=== PATIENT | female | born 1930 | race Caucasian/White ===

== ENCOUNTER → 2017-01-23 | Outpatient (REF) | payer MEDICARE ==
[~2017-01-23] MED LIST: /ESOM40CA OR; /WARF25TA OR; ALPHAGAN OU; ASOPT OU; BISA10SU2 RE; BISA5TA OR; BISOPROLOL HCTZ PO; CALC500T49 OR; CARDIZEM SR PO; DETR4CAP OR; DILT120C3 OR; KEFL500C OR; KLOR10TA OR; LASI40TA OR; LYRICA PO; MULTIVIT PO; OYST500T OR; PERC5TAB8 OR; PREV15CA OR; ZEBE5TAB OR; [UNRECOGNIZED DRUG - OTHER] PO; [UNRECOGNIZED DRUG - OTHER] PO; azor PO; fish oil PO; magnesium PO; pradaxa PO; vitamin e PO; zocor PO
[2017-01-23 16:27] LABS: CALCIUM LEVEL 9.2 MG/DL (8.8-10.2)
== END ==
LOC: M LABDRAW1 13:42
PROVIDERS: ATTEND Internal Medicine Endocrinology, Diabetes & Metabolism
DX: M81.0 Age-related osteoporosis without current pathological fracture (principal)

== ENCOUNTER → 2017-09-17 | Outpatient (CLI) | payer MEDICARE | LOC: M RAD 10:27 | DX: N64.4 Mastodynia (principal) | CPT/HCPCS: 77066 ==

== ENCOUNTER → 2017-11-13 | Outpatient (CLI) | payer MEDICARE | LOC: M RAD 12:59 | DX: R22.43 Localized swelling, mass and lump, lower limb, bilateral (principal) | CPT/HCPCS: 93970 ==

== ENCOUNTER 2018-06-19 12:27 | Day surgery (SDC) | payer MEDICARE ==
[~2018-06-19] VITALS: Ht 157.5 cm; Wt 86.5 kg
[~2018-06-19 12:27] MED LIST changes: -/ESOM40CA OR; -/WARF25TA OR; +BISA10SU27 PR; +BISO5TAB5 PO; +BRIM1OPD OU; +CARD60TA3 PO; +CHEW500C2 PO; +COQ150CH PO; +COUM1TAB18 OR; +DETR4CAP PO; +DULC5TAB PO; +FENT12DI12 TOP; +FISH1000 PO; +LABE200T32 PO; +LASI40TA9 PO; +MAGN400C PO; +MIRA0.12 PO; +MULTCAP PO; +NEXI1CAP3 OR; +NEXI40CA PO; +OCUV1CAP4 PO; +POTA10TA17 PO; +TRAM1CAP15 PO; +VITA-157 PO; +XARE10TA PO; +ZOCO10TA PO
[2018-06-19] MEDS ORDERED: VANCOMYCIN 1000 MG/20 ML VIAL (J3370) As Ordered ONE (14:31)
[2018-06-19] MEDS ORDERED: LIDOCAINE 1% SDV INJ 30 ML VIAL As Ordered ONE (14:31)
[2018-06-19] MEDS ORDERED: NEOSPORIN TOP OINT 15GM As Ordered ONE (17:01)
[2018-06-19] MEDS ORDERED: ONDANSETRON 4MG/2ML VIAL (J2405) As Ordered ONE (17:30)
[2018-06-19] MEDS ORDERED: fentaNYL 100 MCG/2 ML INJECTION (J3010) As Ordered ONE (17:30)
[2018-06-19] MEDS ORDERED: PROPOFOL 200 MG/20 ML VIAL As Ordered ONE ×2 (17:30→18:02)
[2018-06-19] MEDS ORDERED: LIDOCAINE 2% INJ 100 MG/5 ML SDV (FOR ANES.) As Ordered ONE (17:30)
[2018-06-19] MEDS ORDERED: MIDAZOLAM INJ 2 MG/2 ML VIAL (J2250) As Ordered ONE (17:30)
[2018-06-19] MEDS ORDERED: LR 1,000 ML IV SCH (18:30)
[2018-06-19] MEDS ORDERED: fentaNYL 100 MCG/2 ML INJECTION (J3010) IV PRN (18:30)
--- NOTE | 2018-06-19 19:31 | RO ---
DATE OF PROCEDURE: 06/19/2018 PREPROCEDURE DIAGNOSIS: Pacemaker battery depletion. POSTPROCEDURE DIAGNOSIS: Pacemaker battery depletion. FINDINGS: Pacemaker battery depletion. PROCEDURE: Explantation of old [employer] dual-chamber pacemaker pulse generator with implantation of new [employer] dual-chamber pacemaker pulse generator and implantation of medium size TYRX antimicrobial envelope. SURGEON: Claudio Niño MD CONFERENCE PLANNER: None. ANESTHESIA: Lidocaine 1% local and monitored anesthetic care. SPECIMENS: Old [employer] dual-chamber pacemaker pulse generator. ESTIMATED BLOOD LOSS: Less than 2 mL. No blood products replaced. No drains. No complications. DESCRIPTION OF PROCEDURE: The patient was prepped and draped over the left pectoral region. 3M Ioban film was applied. Incision was made with a PEAK PlasmaBlade over the existing pacemaker scar. This was done using a PEAK PlasmaBlade. The PEAK PlasmaBlade was then used to dissect down to the level of the pacemaker pulse generator. Some fine scissors dissection was used to cut through the capsule overlying the pulse generator. The suture holding down the pacemaker pulse generator was then snipped. The pacemaker pulse generator was then removed from the pocket. The terminal pins were removed from the pacemaker pulse generator after reducing the set screws with the hex screwdriver. The atrial and ventricular leads were tested and found to be satisfactory. The existing terminal pins of the atrial and ventricular leads were plugged into their respective ports in the header of the new pacemaker pulse generator and secured by tightening the set screws with the hex screwdriver. I then took a medium size TYRX antimicrobial envelope and cut it into six pieces, which were placed into the floor of the pacemaker pocket. The new pacemaker pulse generator was then placed on top of that within the existing pacemaker pocket. The deep layer, including the anterior capsule, was closed using individual sutures consisting of #2-0 Vicryl. A few additional #3-0 Vicryl sutures were used to help approximate the more superficial layer. The skin was closed using cheryl. The patient tolerated the procedure well without any immediate complications. The existing pacemaker pulse generator that was explanted was a [employer], model 5826 with serial number [id number], originally implanted 10/28/2008. The new pacemaker pulse generator implanted was a [employer] Assurity MRI with model number [id number] with serial number [id number]. The existing chronic right atrial lead was a [employer], model 1782TC/52 with serial number [id number], originally implanted 10/28/2008. The patient was in atrial fibrillation. The measured atrial fibrillation amplitude waves were 0.5 millivolts with lead impedance of 309 ohms. The existing right ventricle lead was a [employer], model 1646T/58 with serial number [id number], originally implanted 10/28/2008. Testing in the operating room for the right ventricle lead through the PSA analyzer showed a capture threshold of 0.9 volts at 0.4 milliseconds with R wave amplitude of 6.0 millivolts and a lead impedance of 463 ohms.
[2018-06-19 19:52] VITALS: BP 113/56
== END 2018-06-19 19:52 | disposition home or self-care (01) ==
LOC: M SDC 12:27
PROVIDERS: ATTEND Internal Medicine Cardiovascular Disease
DX: T82.111A Breakdown (mechanical) of cardiac pulse generator (battery), initial encounter (principal); Z45.010 Encounter for checking and testing of cardiac pacemaker pulse generator [battery]; I48.0 Paroxysmal atrial fibrillation; I12.9 Hypertensive chronic kidney disease with stage 1 through stage 4 chronic kidney disease, or unspecified chronic kidney disease; I50.9 Heart failure, unspecified; E78.5 Hyperlipidemia, unspecified; J44.9 Chronic obstructive pulmonary disease, unspecified; N18.9 Chronic kidney disease, unspecified; Z79.899 Other long term (current) drug therapy
CPT/HCPCS: 33228; C1785; J0690; J2250; J2405; J3010

== ENCOUNTER 2018-09-03 18:04 | Inpatient (IN) | payer MEDICARE ==
[~2018-09-03] VITALS: Ht 157.5 cm; Wt 85.5 kg
[~2018-09-03 18:04] MED LIST changes: +BISO5TAB14 PO; -BISO5TAB5 PO
[2018-09-03] MEDS ORDERED: ELIQ2.5T PO (18:36)
[2018-09-03] MEDS ORDERED: PANT40TA3 PO (18:36)
[2018-09-03] MEDS ORDERED: TORS20TA2 PO (18:36)
[2018-09-03] MEDS ORDERED: CALC-333 PO (18:58)
[2018-09-03] MEDS ORDERED: CART120C PO (18:58)
[2018-09-03 19:05] LABS: BASO % 0.4 % (0.0-1.0); EOS # 0.2 10^3/uL (0.0-0.50); EOS % 2.7 % (0.0-3.0); HEMATOCRIT 31.1 % (36.0-47.0); HEMOGLOBIN 9.2 g/dl (12.0-15.5); LYMPH # 0.7 10^3/uL (1.5-4.5); LYMPH % 10.5 % (24.0-44.0); MEAN CORPUSCULAR HEMOGLOBIN 26.1 pg (27.0-33.0); MEAN CORPUSCULAR HGB CONC 29.6 g/dl (32.0-36.5); MEAN CORPUSCULAR VOLUME 88.1 fl (80.0-96.0); MONO # 0.8 10^3/uL (0.0-0.8); MONO % 11.1 % (0.0-5.0); NEUTROPHILS # 5.2 10^3/uL (1.8-7.7); NEUTROPHILS % 74.7 % (36.0-66.0); PLATELET COUNT, AUTOMATED 242 10^3/uL (150-450); RED BLOOD COUNT 3.53 10^6/uL (4.00-5.40); WHITE BLOOD COUNT 6.9 10^3/uL (4.0-10.0)
[2018-09-03] MEDS ORDERED: COMB0.2S OU (19:06)
[2018-09-03] MEDS ORDERED: MIRA0.5T PO (19:06)
[2018-09-03] MEDS ORDERED: VITA-157 PO (19:06)
[2018-09-03] MEDS ORDERED: TRAM50TA2 PO (19:06)
[2018-09-03] MEDS ORDERED: ACET-683 PO (19:06)
[2018-09-03 19:07] LABS: INR 1.25; PROTHROMBIN TIME 15.4 SECONDS (11.8-14.0)
[2018-09-03 19:26] LABS: ALBUMIN 3.5 GM/DL (3.2-5.2); BILIRUBIN,DIRECT 0.2 MG/DL (0.0-0.2); BILIRUBIN,TOTAL 0.7 MG/DL (0.2-1.0); CALCIUM LEVEL 8.9 MG/DL (8.8-10.2); CREATININE FOR GFR 1.12 MG/DL (0.55-1.30); GLOMERULAR FILTRATION RATE 49.1 (>32); POTASSIUM SERUM 3.7 MEQ/L (3.5-5.1); TOTAL PROTEIN 6.3 GM/DL (6.4-8.2)
--- NOTE | 2018-09-03 19:35 | ECGEPIP ---
[facility] - ED Test Date: 2018-09-03 Pat Name: JANY OLSON Department: Room: - Gender: Female Measuring Clerk: : [id number] Requested By: Nelly Thrasher Order Number: [id number] Reading MD: Nelly Thrasher Measurements Intervals [place] Rate: 75 P: NC: -1 QRS: 13 QRSD: 94 T: QT: 381 QTc: 426 Interpretive Statements ATRIAL FIBRILLATION ELECTRONIC VENTRICULAR PACEMAKER ST DEVIATION AND MODERATE T-WAVE ABNORMALITY, CONSIDER ISCHEMIA NO PRIOR Electronically Signed on 09-03-2018 19:34:54 EDT by Nelly Thrasher
[2018-09-03] MEDS ORDERED: FENTANYL REMOVAL DOCUMENTATION MISC XX SCH (21:15)
--- NOTE | 2018-09-03 21:25 | HPEPDOC ---
General Date of Admission 09.03.18 Date of Service: Sep 03, 2018 Chief Complaint The patient is a 88-year-old female admitted with a reason for visit of Abdominal Pain. History of Present Illness 88f with hx of afib on eliquis, CHF, ppm, htn, hld, compression fractures who presents with concern for an esophageal stricture. Pt reports she has been feeling well with no issues swallowing solids or liquids, no chest or abdominal pain, and no regurgitation. She went to her PMD for routine screening and was found to have a positive stool occult blood. She was trying to avoid a colonoscopy and had a barium swallow with small bowel follow through yesterday. She was called today and asked to come to the ED for evaluation due to concern of a distal stricture as narrow as 5mm A full ROS was performed and is negative except as documented above Home Medications Scheduled Apixaban (Eliquis) 2.5 Mg Tablet, 2.5 MG PO BID, (Reported) Brimonidine Tartrate/Timolol (Combigan 0.2%-0.5% Eye Drops) 5 Ml Drops, 1 DROP OU BID, (Reported) Calcium Carbonate/Vitamin D3 (Calcium 500+D Tablet Chew) 1 Each Tab.chew, 1 CHW PO QPM, (Reported) Diltiazem HCl (Cartia Xt) 120 Mg Cap.er.24h, 120 MG PO QPM, (Reported) Fentanyl (Fentanyl) 12 Mcg Patch.td72, 12 MCG TOP Q72H, (Reported) Labetalol HCl (Labetalol HCl) 200 Mg Tablet, 200 MG PO BID, (Reported) Lutein/Zeaxanthin (Ocuvite Lutein 25-5 mg Softgel) 1 Each Capsule, 1 CAP PO DAILY, (Reported) AT 1200 Magnesium Oxide (Magnesium) 400 Mg Capsule, 400 MG PO DAILY, (Reported) Pantoprazole Sodium (Pantoprazole Sodium) 40 Mg Tablet.dr, 40 MG PO DAILY, (Reported) Potassium Chloride (Potassium Chloride) 10 Meq Tab.er.prt, 10 MEQ PO BID, (Reported) Pramipexole Di-HCl (Mirapex) 0.5 Mg Tablet, 0.5 MG PO QHS, (Reported) Simvastatin (Zocor) 10 Mg Tablet, 10 MG PO QHS, (Reported) Torsemide (Torsemide) 20 Mg Tablet, 40 MG PO BID, (Reported) Vitamin E (Dl,Tocopheryl Acet) (Vitamin E) 400 Unit Capsule, 400 UNIT PO DAILY, (Reported) AT 1200 Scheduled PRN Acetaminophen (Acetaminophen) 500 Mg Tablet, 500 MG PO QID PRN for PAIN, (Reported) PATIENT STATES SHE TAKES ONE TAB WITH TRAMADOL DOSE Tramadol HCl (Tramadol HCl) 50 Mg Tablet, 50 MG PO QID PRN for PAIN, (Reported) Allergies Coded Allergies: meperidine (Verified Allergy, Intermediate, 06/16/18) strange feeling all over naproxen (Verified Allergy, Intermediate, itching, 06/16/18) Past Medical History Medical History as above Surgical History as above Social History * Smoker: Denies Alcohol: Denies Drugs: denies A-FIB/CHADSVASC A-FIB History Current/History of A-Fib/PAF?: Yes Current PO Anticoag Therapy: Yes Physical Examination General Exam: Positive: Alert, No Acute Distress Eye Exam: Positive: PERRLA, Conjunctiva & lids normal, EOMI; Negative: Sclera icteric ENT Exam: Positive: Atraumatic, Mucous membr. moist/pink, Pharynx Normal Neck Exam: Positive: Supple; Negative: JVD, thyromegaly Chest Exam: Positive: Clear to auscultation, Normal air movement Heart Exam: Positive: Rate Normal, Irregular Rhythm, Normal S1, Normal S2; Negative: Murmurs, Rubs Telemetry: Positive: Atrial fibrillation Abdomen Exam: Positive: Normal bowel sounds, Soft; Negative: Tenderness, Hepatospenomegaly Extremity Exam: Positive: Edema Vital Signs Vital Signs Date Time Temp Pulse Resp B/P (MAP) Pulse Ox O2 Delivery O2 Flow Rate FiO2 09/03/18 18:49 74 130/58 (82) 95 09/03/18 18:06 99.1 18 Room Air Laboratory Data Labs 24H Laboratory Tests 2 09/03/18 18:31: Prothrombin Time 15.4H, Prothromb Time International Ratio 1.25 09/03/18 18:34: Immature Granulocyte % (Auto) 0.6, White Blood Count 6.9, Red Blood Count 3.53L, Hemoglobin 9.2L, Hematocrit 31.1L, Mean Corpuscular Volume 88.1, Mean Corpuscular Hemoglobin 26.1L, Mean Corpuscular Hemoglobin Concent 29.6L, Red Cell Distribution Width 16.8H, Platelet Count 242, Neutrophils (%) (Auto) 74.7H, Lymphocytes (%) (Auto) 10.5L, Monocytes (%) (Auto) 11.1H, Eosinophils (%) (Auto) 2.7, Basophils (%) (Auto) 0.4, Neutrophils # (Auto) 5.2, Lymphocytes # (Auto) 0.7L, Monocytes # (Auto) 0.8, Eosinophils # (Auto) 0.2, Basophils # (Auto) 0.0, Nucleated Red Blood Cells % (auto) 0.0, Anion Gap 8, Glomerular Filtration Rate 49.1, Calcium Level 8.9, Aspartate Amino Transf (AST/SGOT) 10, Alanine Aminotransferase (ALT/SGPT) 11L, Alkaline Phosphatase 135H, Total Bilirubin 0.7, Direct Bilirubin 0.2, Total Protein 6.3L, Albumin 3.5, Albumin/Globulin Ratio 1.25, Lipase 61L CBC/BMP Laboratory Tests 09/03/18 18:34 Red Blood Count 3.53 L, Mean Corpuscular Volume 88.1, Mean Corpuscular Hemog lobin 26.1 L, Mean Corpuscular Hemoglobin Concent 29.6 L, Red Cell Distribution Width 16.8 H, Neutrophils (%) (Auto) 74.7 H, Lymphocytes (%) (Auto) 10.5 L, Monocytes (%) (Auto) 11.1 H, Eosinophils (%) (Auto) 2.7, Basophils (%) (Auto) 0.4, Neutrophils # (Auto) 5.2, Lymphocytes # (Auto) 0.7 L, Monocytes # (Auto) 0.8, Eosinophils # (Auto) 0.2, Basophils # (Auto) 0.0 Assessment/Plan 88f presented for evaluation of esophagus will keep npo at midnight and hold eliquis in anticipation of possible EGD in am AFib/htn continue cardizem and labetalol resume eliquis after egd or if unable to schedule egd for friday chf continue torsemide monitor daily weights Is/Os compression fx continue fentanyl patch Plan / VTE VTE Prophylaxis Ordered?: Yes ERIKA ROBISON MD Sep 03, 2018 21:25
[2018-09-03] MEDS: LABETALOL 200 MG TAB PO SCH (22:03)
[2018-09-03] MEDS: SIMVASTATIN 10 MG TAB PO SCH (22:04)
[2018-09-03] MEDS: TORSEMIDE 20 MG TAB PO SCH (23:44)
[2018-09-03] MEDS: traMADol 50 MG TAB PO PRN (23:45)
[2018-09-04 06:00] VITALS: BP 117/55
[2018-09-04 06:53] LABS: HEMATOCRIT 27.6 % (36.0-47.0); HEMOGLOBIN 8.2 g/dl (12.0-15.5); MEAN CORPUSCULAR HEMOGLOBIN 25.2 pg (27.0-33.0); MEAN CORPUSCULAR HGB CONC 29.7 g/dl (32.0-36.5); MEAN CORPUSCULAR VOLUME 84.7 fl (80.0-96.0); PLATELET COUNT, AUTOMATED 216 10^3/uL (150-450); RED BLOOD COUNT 3.26 10^6/uL (4.00-5.40); WHITE BLOOD COUNT 6.5 10^3/uL (4.0-10.0)
[2018-09-04 07:25] LABS: BLOOD UREA NITROGEN 21 MG/DL (7-18); CALCIUM LEVEL 8.2 MG/DL (8.8-10.2); CARBON DIOXIDE LEVEL 35 MEQ/L (21-32); CHLORIDE LEVEL 105 MEQ/L (98-107); CREATININE FOR GFR 0.94 MG/DL (0.55-1.30); GLOMERULAR FILTRATION RATE > 60.0 (>32); GLUCOSE, FASTING 105 MG/DL (70-100); POTASSIUM SERUM 2.9 MEQ/L (3.5-5.1); SODIUM LEVEL 145 MEQ/L (136-145)
[2018-09-04] MEDS ORDERED: KCL 40MEQ IN D5/0.45NS 1000ML 1,000 ML IV SCH (09:00)
[2018-09-04] MEDS: MAGNESIUM OXIDE 400 MG TAB (MAG-OX) PO SCH (09:56)
[2018-09-04] MEDS: TORSEMIDE 20 MG TAB PO SCH ×2 (09:56→20:48)
[2018-09-04] MEDS: LABETALOL 200 MG TAB PO SCH ×2 (09:56→20:49)
[2018-09-04] MEDS: PANTOPRAZOLE 40MG TAB (PROTONIX) PO SCH (09:56)
[2018-09-04] MEDS: fentaNYL 12 MCG/HR PATCH TOP SCH (09:59)
[2018-09-04 14:00] VITALS: BP 101/51
--- NOTE | 2018-09-04 15:45 | IPNPDOC ---
Text Note Date of Service The patient was seen on 09/04/18. NOTE This is an 88-year-old female who was admitted after being found to have a di stal esophageal stricture. This was seen on a barium swallow with small bowel follow-through study at an outlying facility. The patient had had this study in order to clarify the source of guaiac-positive stools and anemia. Physical exam Vital signs: Please see below HEENT: Neck is supple, no adenopathy or thyromegaly, patient does have some pallor, oral mucosa is moist. Cardiovascular: Regular rate and rhythm with a normal S1 and S2. Respiratory: Clear to auscultation, no active cough. Abdomen: Soft, moderate central obesity, nontender, bowel tones present. Extremities: Trace to 1+ pitting edema to the feet, pedal pulses are palpable. Neuro: No focal neuromotor or sensory deficit. ASSESSMENT/PLAN: 1. Esophageal stricture.The patient has a distal esophageal stricture down to 5 mm. Patient initially denies symptoms, but then recalls having difficulty with "feeling full.". She does relate diminished appetite. She's not had any nausea or regurgitation that she can recall. Plans are for the patient did undergo evaluation by GI inclusive of EGD with possible dilatation. Evaluation has had to be delayed due to the fact that the patient is on chronic anticoagulation with Eliquis. This has been held. Anticipate EGD on Friday. Appreciate assistance from the GI service. 2. Chronic systolic congestive heart failurethe patient is not currently having an acute exacerbation. She is on high-dose diuretic. Renal function has been stable. Serum potassium, however, has dropped 2.9. We will supplement this with oral potassium. He continued to try to avoid excessive fluid overload. 3. Chronic atrial fibrillationthe patient's Eliquis is being held pending EGD. She has been placed on bridging therapy with Lovenox. VS,Fishbone, I+O VS, Fishbone, I+O Laboratory Tests 09/03/18 18:34 Red Blood Count 3.53 L, Mean Corpuscular Volume 88.1, Mean Corpuscular Hemoglobin 26.1 L, Mean Corpuscular Hemoglobin Concent 29.6 L, Red Cell Distribution Width 16.8 H, Neutrophils (%) (Auto) 74.7 H, Lymphocytes (%) (Auto) 10.5 L, Monocytes (%) (Auto) 11.1 H, Eosinophils (%) (Auto) 2.7, Basophils (%) (Auto) 0.4, Neutrophils # (Auto) 5.2, Lymphocytes # (Auto) 0.7 L, Monocytes # (Auto) 0.8, Eosinophils # (Auto) 0.2, Basophils # (Auto) 0.0 09/04/18 06:28 Red Blood Count 3.26 L, Mean Corpuscular Volume 84.7, Mean Corpuscular He moglobin 25.2 L, Mean Corpuscular Hemoglobin Concent 29.7 L, Red Cell Distribution Width 16.5 H, Calcium Level 8.2 L Vital Signs Date Time Temp Pulse Resp B/P (MAP) Pulse Ox O2 Delivery O2 Flow Rate FiO2 09/04/18 14:00 99.0 69 18 101/51 (68) 97 09/03/18 18:06 Room Air I&O- Last 24 Hours up to 6 AM 09/04/18 06:00 Intake Total 360 ml Output Total 1200 ml Balance -840 ml ALEXANDRA QUIGLEY MD Sep 04, 2018 15:45
[2018-09-04] MEDS ORDERED: POTASSIUM CHLORIDE 10% LIQ 20 MEQ/15 ML UDC PO ONE (16:00)
[2018-09-04] MEDS: ENOXAPARIN 80 MG/0.8 ML SYRINGE (J1650) SC SCH (17:18)
[2018-09-04] MEDS: SIMVASTATIN 10 MG TAB PO SCH (20:49)
[2018-09-04] MEDS ORDERED: ENTER DRUG NAME HERE (PATIENT'S OWN MED) PO SCH (21:00)
[2018-09-04 22:00] VITALS: BP 140/78
[2018-09-04] MEDS: SENNA 8.6 MG TAB (SENOKOT) PO PRN (22:30)
[2018-09-04] MEDS ORDERED: PILL CUTTER 1 EACH XX PRN (22:30)
[2018-09-04] MEDS: PRAMIPEXOLE 1 MG TAB PO SCH (22:30)
[2018-09-04] MEDS: traMADol 50 MG TAB PO PRN (22:31)
[2018-09-05] MEDS: ENOXAPARIN 80 MG/0.8 ML SYRINGE (J1650) SC SCH ×2 (05:30→17:51)
[2018-09-05] MEDS: traMADol 50 MG TAB PO PRN ×3 (05:31→20:48)
[2018-09-05 06:00] VITALS: BP 130/58
[2018-09-05 07:00] LABS: CALCIUM LEVEL 8.9 MG/DL (8.8-10.2); CREATININE FOR GFR 0.96 MG/DL (0.55-1.30); GLOMERULAR FILTRATION RATE 58.7 (>32)
[2018-09-05 08:00] VITALS: BP 133/82
[2018-09-05] MEDS ORDERED: POTASSIUM CHLORIDE 10% LIQ 20 MEQ/15 ML UDC PO SCH (09:00)
[2018-09-05] MEDS: TORSEMIDE 20 MG TAB PO SCH ×2 (09:30→20:47)
[2018-09-05] MEDS: PANTOPRAZOLE 40MG TAB (PROTONIX) PO SCH (09:31)
[2018-09-05] MEDS: LABETALOL 200 MG TAB PO SCH ×2 (09:31→20:47)
[2018-09-05] MEDS: MAGNESIUM OXIDE 400 MG TAB (MAG-OX) PO SCH (09:32)
[2018-09-05 13:25] VITALS: BP 122/73
--- NOTE | 2018-09-05 13:33 | CR ---
DATE OF CONSULTATION: 09/05/2018 REQUESTING PHYSICIAN: Hospitalist service. REASON FOR CONSULTATION: Esophageal stricture. HISTORY OF PRESENT ILLNESS: Ms. Osei is an 88-year-old female with atrial fibrillation on Eliquis. She was noted to have some heme positive stool and history of anemia. During her evaluations for her anemia she was found to have heme positive stools and subsequently was ordered to have an upper GI small bowel follow through performed. The upper GI found a narrowing in her distal esophagus up to 5 mm and the patient was asked to come to the emergency room for further evaluation. The patient denies any significant abdominal pain, nausea, vomiting. She denies any significant dysphagia. She does eat soft foods in general and fills up fairly quickly; however, denies any significant upper GI symptoms. She has she has never choked on food or has not had any significant vomiting or regurgitation symptoms. She denies any weight loss, fevers, chills, abdominal pain, nausea, vomiting and actually feels fairly comfortable. PAST MEDICAL HISTORY: Atrial fibrillation. Congestive heart failure. Hyperlipidemia. Anemia. MEDICATIONS AT HOME: - Eliquis - diltiazem - fentanyl patch - labetalol - Mag-Ox - pantoprazole - KCL - simvastatin - torsemide ALLERGIES: Are to: 1. DEMEROL. 2. NAPROSYN. FAMILY HISTORY: Noncontributory. REVIEW OF SYSTEMS: GENERAL: Negative for weight loss, night sweats, fevers or chills. PULMONARY: Negative for orthopnea, paroxysmal nocturnal dyspnea (PND), hemoptysis. CARDIAC: Negative for chest pain or palpitations. GASTROINTESTINAL (GI): As per HPI. GENITOURINARY (): Negative for hematuria, dysuria. MUSCULOSKELETAL: Positive for back pain related to her compression fractures. PHYSICAL EXAMINATION: Temperature 98.2, pulse 78, respiratory rate 16, blood pressure 132/82. GENERAL: She is awake, alert and oriented times three in no acute distress, comfortably in bed. HEAD, EYES, EARS, NOSE AND THROAT: Grossly without abnormality. Negative for scleral icterus. NECK: Supple. No lymphadenopathy, thyromegaly. CHEST: Heart is irregularly irregular, S1-S2, no murmurs or gallops. ABDOMEN: Obese, soft, nontender. Good bowel sounds. No masses felt. EXTREMITIES: Negative for edema. RECTAL EXAMINATION: Deferred as per patient. LABORATORY FINDINGS: Hemoglobin 9.2/8.2, MCV is 84.7, RDW 16.5, WBC 6.5, potassium 3.0, chloride 104, BUN 15, creatinine 0.96. IMAGING STUDIES: Includes upper GI series small bowel follow-through done at [facility], dated 09/02/2018, impressions include: 1. Narrowing of the distal esophagus measuring approximately 5 mm in transverse diameter at its narrowest point. 2. Tertiary contractions on the esophagus are noted. 3. Gastroesophageal reflux is identified. 4. Gastric fold thickening suggesting underlying gastritis. 5. The small bowel follow-through portion is unremarkable. IMPRESSION: 1. Abnormal upper GI suggesting esophageal stricture. 2. Anemia. 3. Heme positive stool. RECOMMENDATION: 1. Hold Eliquis times two days after which time upper endoscopy with possible dilation if necessary will be performed. Further recommendations will depend on findings.
[2018-09-05] MEDS: ACETAMINOPHEN 500 MG TAB PO PRN (17:52)
--- NOTE | 2018-09-05 19:35 | IPNPDOC ---
Text Note Date of Service The patient was seen on 09/05/18. NOTE The patient is not having any pain, discomfort or difficulty eating. Patient was admitted with concern for possible GI bleed and distal esophageal stricture. Eliquis is being held and we are hopeful of endoscopy evaluation on Friday. The patient is reporting a small amount of blood with her stools today. Physical exam Vital signs: Please see below HEENT: Neck is supple, no adenopathy or thyromegaly, patient does have some pallor, oral mucosa is moist. Cardiovascular: Regular rate and rhythm with a normal S1 and S2. Respiratory: Clear to auscultation, no active cough. Abdomen: Soft, moderate central obesity, nontender, bowel tones present. Extremities: Trace to 1+ pitting edema to the feet, pedal pulses are palpable. Neuro: No focal neuromotor or sensory deficit. ASSESSMENT/PLAN: 1. Esophageal stricture.The patient has a distal esophageal stricture down to 5 mm. Patient initially denies symptoms, but then recalls having difficulty with "feeling full.". She does relate diminished appetite. She's not had any nausea or regurgitation that she can recall. Plans are for the patient did undergo evaluation by GI inclusive of EGD with possible dilatation. Evaluation has had to be delayed due to the fact that the patient is on chronic anticoagulation with Eliquis. This has been held. Anticipate EGD on Friday. Appreciate assistance from the GI service. 2. Chronic systolic congestive heart failurethe patient is not currently having an acute exacerbation. She is on high-dose diuretic. Renal function has been stable. Serum potassium, however, has dropped to 3.0. We will supplement this with oral potassium. We continued to try to avoid excessive fluid overload. 3. Chronic atrial fibrillationthe patient's Eliquis is being held pending EGD. She has been placed on bridging therapy with Lovenox. 4. Anemiathere was also concern for blood loss anemia with guaiac positive stool. We note that hemoglobin has dropped from 9.2-8.2. We will recheck and tra nsfuse as needed. VS,Fishbone, I+O VS, Fishbone, I+O Laboratory Tests 09/05/18 06:08 Calcium Level 8.9 Vital Signs Date Time Temp Pulse Resp B/P (MAP) Pulse Ox O2 Delivery O2 Flow Rate FiO2 09/05/18 13:25 97.4 70 19 122/73 (89) 92 09/03/18 18:06 Room Air I&O- Last 24 Hours up to 6 AM 09/05/18 06:00 Intake Total 1070 ml Output Total 1425 ml Balance -355 ml ALEXANDRA QUIGLEY MD Sep 05, 2018 17:13
[2018-09-05 20:02] LABS: IRON (FE) 32 UG/DL (50-170); TOTAL IRON BINDING CAPACITY 399 UG/DL (250-450)
[2018-09-05] MEDS: SIMVASTATIN 10 MG TAB PO SCH (20:47)
[2018-09-05] MEDS: PRAMIPEXOLE 1 MG TAB PO SCH (20:54)
[2018-09-05 22:00] VITALS: BP 110/66
[2018-09-06] MEDS: traMADol 50 MG TAB PO PRN ×2 (05:31→17:10)
[2018-09-06] MEDS: ENOXAPARIN 80 MG/0.8 ML SYRINGE (J1650) SC SCH ×2 (05:31→17:11)
[2018-09-06 06:00] VITALS: BP 114/74
[2018-09-06 07:20] LABS: HEMOGLOBIN 8.3 g/dl (12.0-15.5); MEAN CORPUSCULAR HEMOGLOBIN 24.9 pg (27.0-33.0); MEAN CORPUSCULAR HGB CONC 29.6 g/dl (32.0-36.5); MEAN CORPUSCULAR VOLUME 83.8 fl (80.0-96.0); PLATELET COUNT, AUTOMATED 221 10^3/uL (150-450); RED BLOOD COUNT 3.34 10^6/uL (4.00-5.40); WHITE BLOOD COUNT 8.4 10^3/uL (4.0-10.0)
[2018-09-06 07:46] LABS: BLOOD UREA NITROGEN 12 MG/DL (7-18); CALCIUM LEVEL 8.6 MG/DL (8.8-10.2); CARBON DIOXIDE LEVEL 35 MEQ/L (21-32); CHLORIDE LEVEL 101 MEQ/L (98-107); CREATININE FOR GFR 0.94 MG/DL (0.55-1.30); GLOMERULAR FILTRATION RATE > 60.0 (>32); GLUCOSE, FASTING 115 MG/DL (70-100); POTASSIUM SERUM 2.9 MEQ/L (3.5-5.1); SODIUM LEVEL 141 MEQ/L (136-145)
[2018-09-06] MEDS: TORSEMIDE 20 MG TAB PO SCH ×2 (09:00→21:01)
[2018-09-06] MEDS: MAGNESIUM OXIDE 400 MG TAB (MAG-OX) PO SCH (09:00)
[2018-09-06] MEDS: LABETALOL 200 MG TAB PO SCH ×2 (09:00→21:01)
[2018-09-06] MEDS: PANTOPRAZOLE 40MG TAB (PROTONIX) PO SCH (09:00)
[2018-09-06] MEDS: POTASSIUM CHLORIDE 10% LIQ 20 MEQ/15 ML UDC PO SCH (09:00)
[2018-09-06 14:00] VITALS: BP 99/55
--- NOTE | 2018-09-06 17:23 | IPNPDOC ---
Text Note Date of Service The patient was seen on 09/06/18. NOTE The patient is not having any pain, discomfort or difficulty eating. Patient was admitted with concern for possible GI bleed and distal esophageal stricture. Eliquis is being held and we are expecting of endoscopy evaluation on Friday. The patient reported a small amount of blood with her stools yesterday. Physical exam Vital signs: Please see below HEENT: Neck is supple, no adenopathy or thyromegaly, patient does have some pallor, oral mucosa is moist. Cardiovascular: Regular rate and rhythm with a normal S1 and S2. Respiratory: Clear to auscultation, no active cough. Abdomen: Soft, moderate central obesity, nontender, bowel tones present. Extremities: Trace to 1+ pitting edema to the feet, pedal pulses are palpable. Neuro: No focal neuromotor or sensory deficit. ASSESSMENT/PLAN: 1. Esophageal stricture.The patient has a distal esophageal stricture down to 5 mm reported from barium swallow study. Patient initially denies symptoms, but then recalls having difficulty with "feeling full.". She does relate diminished appetite. She's not had any nausea or regurgitation that she can recall. Plans are for the patient did undergo evaluation by GI inclusive of EGD with possible dilatation. Evaluation has had to be delayed due to the fact that the patient is on chronic anticoagulation with Eliquis. This has been held. Anticipate EGD tomorrow. Appreciate assistance from the GI service. 2. Chronic systolic congestive heart failurethe patient is not currently having an acute exacerbation. She is on high-dose diuretic. Renal function has been stable. Serum potassium, however, has dropped to 3.0. We will supplement this with oral potassium. We continued to try to avoid excessive fluid overload. 3. Chronic atrial fibrillationthe patient's Eliquis is being held pending EGD. She has been placed on bridging therapy with Lovenox. This will be held for endoscopy tomorrow. 4. Anemiathere was also concern for blood loss anemia with guaiac positive st ool. We note that hemoglobin has dropped from 9.2-8.2; hemoglobin is 8.3 today. We will recheck and transfuse as needed. VS,Fishbone, I+O VS, Fishbone, I+O Laboratory Tests 09/06/18 06:52 Red Blood Count 3.34 L, Mean Corpuscular Volume 83.8, Mean Corpuscular Hemoglobin 24.9 L, Mean Corpuscular Hemoglobin Concent 29.6 L, Red Cell Distribution Width 16.4 H, Calcium Level 8.6 L Vital Signs Date Time Temp Pulse Resp B/P (MAP) Pulse Ox O2 Delivery O2 Flow Rate FiO2 09/06/18 17:10 16 09/06/18 09:00 74 114/74 09/06/18 06:00 97.8 95 09/03/18 18:06 Room Air I&O- Last 24 Hours up to 6 AM 09/06/18 05:59 Intake Total 1561 ml Output Total 450 ml Balance 1111 ml ALEXANDRA QUIGLEY MD Sep 06, 2018 17:23
[2018-09-06] MEDS: SIMVASTATIN 10 MG TAB PO SCH (21:01)
[2018-09-06] MEDS: PRAMIPEXOLE 1 MG TAB PO SCH (21:01)
[2018-09-06 21:05] VITALS: BP 118/66
[2018-09-07 05:41] VITALS: BP 115/58
[2018-09-07 06:29] LABS: MEAN CORPUSCULAR HEMOGLOBIN 25.7 pg (27.0-33.0); MEAN CORPUSCULAR VOLUME 85.7 fl (80.0-96.0); PLATELET COUNT, AUTOMATED 231 10^3/uL (150-450); WHITE BLOOD COUNT 8.4 10^3/uL (4.0-10.0)
[2018-09-07] MEDS: POTASSIUM CHLORIDE 10% LIQ 20 MEQ/15 ML UDC PO SCH (09:26)
[2018-09-07] MEDS: fentaNYL 12 MCG/HR PATCH TOP SCH (09:26)
[2018-09-07] MEDS: MAGNESIUM OXIDE 400 MG TAB (MAG-OX) PO SCH (09:27)
[2018-09-07] MEDS: TORSEMIDE 20 MG TAB PO SCH ×2 (09:27→20:41)
[2018-09-07] MEDS: PANTOPRAZOLE 40MG TAB (PROTONIX) PO SCH (09:29)
[2018-09-07] MEDS: LABETALOL 200 MG TAB PO SCH ×2 (09:30→20:40)
[2018-09-07] MEDS ORDERED: ENOXAPARIN 100MG/1ML SYRINGE (J1650) SC SCH (10:15)
[2018-09-07 11:11] LABS: VITAMIN B12 LEVEL 598 PG/ML (247-911)
[2018-09-07 11:12] LABS: FOLATE > 24.0 NG/ML (>5.4)
[2018-09-07 11:45] VITALS: BP 104/58
--- NOTE | 2018-09-07 13:42 | REP ---
CHEST X-RAY: Single view. HISTORY: Shortness of breath. COMPARISON STUDY: December 20, 2010. FINDINGS: A bipolar pacemaker is again seen in the right heart via the left side. Oxygen delivery tubing is seen. Left hemidiaphragm is slightly elevated. There is no evidence of infiltrate or pleural effusion. There is mild linear plate-like atelectasis in the left base. IMPRESSION: Mildly prominent heart with pacemaker. Plate-like atelectasis left base. No acute infiltrate. Electronically Signed by Arnie Pitts MD 09/07/2018 02:30 P
[2018-09-07 13:58] LABS: APPEARANCE, URINE CLEAR (CLEAR); BACTERIA, URINE AUTO NEGATIVE (NEGATIVE); BILIRUBIN, URINE AUTO NEGATIVE (NEGATIVE); BLOOD, URINE BLOOD 1+ (NEGATIVE); COLOR, URINE YELLOW (YELLOW); GLUCOSE, URINE (UA) AUTO NEGATIVE (NEGATIVE); KETONE, URINE AUTO NEGATIVE (NEGATIVE); LEUKOCYTE ESTERASE, URINE AUTO 1+ (NEGATIVE); MUCUS, URINE SMALL (NEGATIVE); NITRITE, URINE AUTO NEGATIVE (NEGATIVE); PROTEIN, URINE AUTO NEGATIVE (NEGATIVE); RBC, URINE AUTO 18 /HPF (0-3); SPECIFIC GRAVITY URINE AUTO 1.006 (1.002-1.035); SQUAMOUS EPITHELIAL CELL UR AU 0 /HPF (0-6); UROBILINOGEN, URINE AUTO 0.2 mg/dL (0.0-2.0); WBC, URINE AUTO 8 /HPF (0-3)
[2018-09-07 14:47] VITALS: BP 110/52
--- NOTE | 2018-09-07 16:40 | REP ---
Noncontrast brain CT: History: Fatigue and confusion. No comparison brain imaging. CT findings: Digital preliminary cnc manager radiograph is unremarkable. Bone window settings show no bony calvarial lesion. Visualized paranasal sinuses are clear. There is fairly heavy vascular calcification in the distal internal carotid arteries bilaterally. On soft tissue window settings there is diffuse moderate atrophy. There are old lacunar infarcts in the basal ganglia bilaterally. Extensive small vessel atherosclerotic changes are seen in the periventricular white matter. There is no evidence of intracranial hemorrhage. No acute cortical infarction is seen. No extra-axial fluid collection, mass, or midline shift is seen. Impression: Diffuse moderate atrophy, vascular calcification, advanced the small vessel changes. Bilateral basal ganglia lacunar infarcts. No acute intracranial abnormality. Electronically Signed by Arnie Pitts MD 09/08/2018 07:44 A
[2018-09-07] MEDS: ENOXAPARIN 100MG/1ML SYRINGE (J1650) SC SCH (18:09)
[2018-09-07 19:14] VITALS: BP 112/52
[2018-09-07] MEDS ORDERED: cefTRIAXone SOD 1 GM in D5W MINI-BAG PLUS 50 ML IV ONE (19:15)
--- NOTE | 2018-09-07 19:42 | IPNPDOC ---
Text Note Date of Service The patient was seen on 09/07/18. NOTE had an episode today of acute onset of fatigue and confusion. She also had decreased responsiveness. Daughter noted prolonged episodes of sleepiness. Patient had been scheduled for EGD to evaluate for GI bleed and possible distal esophageal stricture. Procedure had to be canceled. Physical exam Vital signs: Please see below HEENT: Neck is supple, no adenopathy or thyromegaly, patient does have some pallor, oral mucosa is moist. Cardiovascular: Regular rate and rhythm with a normal S1 and S2. Respiratory: Clear to auscultation, no active cough. Abdomen: Soft, moderate central obesity, nontender, bowel tones present. Extremities: Trace to 1+ pitting edema to the feet, pedal pulses are palpable, patient complained of pain and weakness to her left shoulder and arm Neuro: No focal neuromotor or sensory deficit, patient was alert and conversant but fatigued Laboratory data and radiologic review: CT scan of the head: On soft tissue window settings there is diffuse moderate atrophy. There are old lacunar infarcts in the basal ganglia bilaterally. Extensive small vessel atherosclerotic changes are seen in the periventricular white matter. There is no evidence of intracranial hemorrhage. No acute cortical infarction is seen. No extra-axial fluid collection, mass, or midline shift is seen. Impression: Diffuse moderate atrophy, vascular calcification, advanced the small vessel changes. Bilateral basal ganglia lacunar infarcts. No acute intracranial abnormality. Chest x-ray was unremarkable. Troponin was negative. Other laboratory studies were within normal limits. ASSESSMENT/PLAN: 1. Esophageal stricture.The patient has a distal esophageal stricture down to 5 mm reported from barium swallow study. Patient initially denies symptoms, but then recalls having difficulty with "feeling full.". She does relate diminished appetite. She's not had any nausea or regurgitation that she can recall. Plans had been for the patient did undergo evaluation by GI inclusive of EGD with possible dilatation. Evaluation has had to be delayed due to the fact that the patient is on chronic anticoagulation with Eliquis. This had been held with bridging therapy in place. Anticipate repeat attempt at EGD tomorrow. Appreciate assistance from the GI service. 2. Chronic systolic congestive heart failurethe patient is not currently having an acute exacerbation. She is on high-dose diuretic. Renal function has been stable. Serum potassium, however, has dropped to 3.0. We will supplement this with oral potassium. We continued to try to avoid excessive fluid overload. 3. Chronic atrial fibrillationthe patient's Eliquis is being held pending EGD. She has been placed on bridging therapy with Lovenox. This will be held for endoscopy tomorrow. 4. Anemiathere was also concern for blood loss anemia with guaiac positive stool. Some blood had been seen with a bowel movement today. We note that hemoglobin has dropped from 9.2-8.2; hemoglobin is 9.0 today. We will recheck and transfuse as needed. 5. Mental status change--the etiology of this event was unclear. Again, CT scan of the head was unremarkable, chest x-ray was unremarkable, troponin was negative, laboratory studies were fairly well within normal limits. Urinalysis was positive for white cells and trace leukocyte esterase but negative for bacteria. Patient has been placed on empiric antibiotic while awaiting urine culture result. Symptoms were substantially improved by late afternoon. VS,Fishbone, I+O VS, Fishbone, I+O Laboratory Tests 09/07/18 06:13 Red Blood Count 3.50 L, Mean Corpuscular Volume 85.7, Mean Corpuscular Hemoglobin 25.7 L, Mean Corpuscular Hemoglobin Concent 30.0 L, Red Cell Di stribution Width 16.3 H Vital Signs Date Time Temp Pulse Resp B/P (MAP) Pulse Ox O2 Delivery O2 Flow Rate FiO2 09/07/18 19:14 112/52 (72) 09/07/18 14:47 94.7 74 16 97 09/03/18 18:06 Room Air I&O- Last 24 Hours up to 6 AM 09/07/18 06:00 Intake Total 1500 ml Output Total 400 ml Balance 1100 ml ALEXANDRA QUIGLEY MD Sep 07, 2018 19:42
[2018-09-07] MEDS: SIMVASTATIN 10 MG TAB PO SCH (20:40)
[2018-09-07] MEDS: PRAMIPEXOLE 1 MG TAB PO SCH (20:41)
[2018-09-07 21:31] VITALS: BP 108/68
[2018-09-08] MEDS: traMADol 50 MG TAB PO PRN ×2 (01:56→12:11)
[2018-09-08 06:00] VITALS: BP 109/56
[2018-09-08] MEDS: ACETAMINOPHEN 500 MG TAB PO PRN ×2 (06:03→20:42)
[2018-09-08] MEDS: ENOXAPARIN 100MG/1ML SYRINGE (J1650) SC SCH ×2 (06:03→17:58)
[2018-09-08 08:12] LABS: BASO % 0.3 % (0.0-1.0); EOS # 0.1 10^3/uL (0.0-0.50); EOS % 1.2 % (0.0-3.0); HEMATOCRIT 27.5 % (36.0-47.0); HEMOGLOBIN 8.3 g/dl (12.0-15.5); LYMPH # 0.8 10^3/uL (1.5-4.5); LYMPH % 8.5 % (24.0-44.0); MEAN CORPUSCULAR HEMOGLOBIN 24.8 pg (27.0-33.0); MEAN CORPUSCULAR HGB CONC 30.2 g/dl (32.0-36.5); MEAN CORPUSCULAR VOLUME 82.1 fl (80.0-96.0); MONO # 1.1 10^3/uL (0.0-0.8); MONO % 12.3 % (0.0-5.0); NEUTROPHILS # 7.2 10^3/uL (1.8-7.7); NEUTROPHILS % 77.3 % (36.0-66.0); PLATELET COUNT, AUTOMATED 234 10^3/uL (150-450); RED BLOOD COUNT 3.35 10^6/uL (4.00-5.40); WHITE BLOOD COUNT 9.3 10^3/uL (4.0-10.0)
[2018-09-08 08:50] LABS: CALCIUM LEVEL 8.3 MG/DL (8.8-10.2); CREATININE FOR GFR 0.98 MG/DL (0.55-1.30); GLOMERULAR FILTRATION RATE 57.3 (>32); MAGNESIUM LEVEL 2.3 MG/DL (1.8-2.4); POTASSIUM SERUM 3.6 MEQ/L (3.5-5.1)
[2018-09-08] MEDS: LABETALOL 200 MG TAB PO SCH ×2 (09:00→20:37)
[2018-09-08] MEDS: PANTOPRAZOLE 40MG TAB (PROTONIX) PO SCH (09:40)
[2018-09-08] MEDS: POTASSIUM CHLORIDE 10% LIQ 20 MEQ/15 ML UDC PO SCH (09:41)
[2018-09-08] MEDS: MAGNESIUM OXIDE 400 MG TAB (MAG-OX) PO SCH (09:41)
[2018-09-08 13:50] VITALS: BP 108/60
[2018-09-08] MEDS ORDERED: propofoL 200 MG/20 ML VIAL As Ordered ONE ×2 (14:25→14:31)
[2018-09-08] MEDS ORDERED: LIDOCAINE 2% INJ 100 MG/5 ML SDV (FOR ANES.) As Ordered ONE (14:26)
[2018-09-08] MEDS ORDERED: PHENYLephrine HCL 500 MCG/5 ML (100MCG/ML) SYRINGE (J2370) As Ordered ONE (14:48)
--- NOTE | 2018-09-08 15:03 | ROOR ---
Patient Name: Rosario Osei Procedure Date: 09/08/2018 2:26 PM Date of : 1930 Age: 88 Room: [facility] Gender: Female Note Status: Finalized Procedure: Upper GI endoscopy Indications: Abnormal UGI series Providers: Claudio DELAROSA MD Referring MD: MARCIA COOLEY MD, 2. Inpatient 2. Inpatient Requesting Provider: Medicines: Monitored Anesthesia Care Complications: No immediate complications. Procedure: Pre-Anesthesia Assessment: - The heart rate, respiratory rate, oxygen saturations, blood pressure, adequacy of pulmonary ventilation, and response to care were monitored throughout the procedure. The Endoscope was introduced through the mouth, and advanced to the second part of duodenum. The upper GI endoscopy was accomplished without difficulty. The patient tolerated the procedure well. Findings: A hypertonic lower esophageal sphincter was found. Non-severe esophagitis with a small nodularity was found at the gastroesophageal junction. Biopsies were taken with a cold forceps for histology. Scattered mild inflammation characterized by erythema and granularity was found in the gastric antrum. Biopsies were taken with a cold forceps for histology. The exam of the stomach was otherwise normal. The examined duodenum was normal. A TTS dilator was passed through the scope. Dilation with a 12-13.5-15 mm balloon dilator was performed to 15 mm in the lower third of the esophagus. Impression: Esophagus: - There is no significant fixed esophageal stricture. - There is esophageal dysmotility and a spastic appearing lower esophageal sphincter. This is easily passable with gentle pressure with the scope. - Dilation of LES was performed in the lower third of the esophagus. - Non-severe distal esophagitis with a small nodularity was seen at the GE junction. Biopsied. 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 Biopsied. Duodenum: - Normal examined duodenum. Recommendation: - Observe patient's clinical course. - Pt is asymptomatic: I anticipate no further need for intervention for the esophageal dysmotility/spasm. - Follow up with me in my office. (to discuss need for colonoscopy for evaluation of anemia). - My office will call you to set up for office visit. Claudio Delarosa MD Claudio DELAROSA MD 09/08/2018 3:03:18 PM Electronically signed by Claudio DELAROSA MD Number of Addenda: 0 Note Initiated On: 09/08/2018 2:26 PM Estimated Blood Loss: Estimated blood loss: none.
--- NOTE | 2018-09-08 16:35 | IPNPDOC ---
Text Note Date of Service The patient was seen on 09/08/18. NOTE Subjective: Patient was seen and examined at the bedside. Patient reports that her appetite is poor. She reports that she hasn't taken anything because of her difficulty swallowing. Denies chest pain, shortness of breath or palpitations. Has not experience any vomiting. Denies diarrhea, constipation, or urinary discomfort. Objective: Vitals (See below) General: Lying in bed, no acute distress, comfortable, AAOx3 HEENT: NC, AT CVS: +S1S2 Lungs: Fair air entry b/l, -w/r/r Abdomen: Soft, ND, NT Extremities: - Edema, - Calf tenderness Assessment and plan: Dysphagia - likely 2/2 Esophageal stricture - - Patient received stool study as an outpatient had indicated positive guaiac, she had refused colonoscopy and had a barium swallow evaluation that indicated she had stricture - s/p EGD with Dr. Delarosa 09/08; indicated esophageal dysmotility and spastic- appearing lower esophageal sphincter dilation of lower esophageal sphincter is in the lower third of the esophagus, biopsies were taken - GI on consult - Will start soft diet and advanced as tolerated Chronic atrial fibrillation - c/w rate control with Diltiazem - c/w anticoagulation with Lovenox; Eliquis on hold - will resume tomorrow (re; EGD preparation) Chronic systolic congestive heart failure - No evidence of exacerbation - c/w Diuretics Anemia - Remains stable - Hg appears to be stable s/p Hypokalemia Weakness / Reported lethargy - Hemodynamically stable / Afebrile - CT head 09/07: Diffuse moderate atrophy, vascular calcification, advanced the small vessel changes. Bilateral basal ganglia lacunar infarcts. No acute intracranial abnormality. - UA without any signs of infection - s/p Ceftriaxone x 1 dose - Will continue to monitor as diet changes DVT prophylaxis - c/w Lovenox therapeutic VS,Fishbone, I+O VS, Fishbone, I+O Laboratory Tests 09/08/18 07:55 Red Blood Count 3.35 L, Mean Corpuscular Volume 82.1, Mean Corpuscular Hemoglobin 24.8 L, Mean Corpuscular Hemoglobin Concent 30.2 L, Red Cell Distribution Width 16.5 H, Neutrophils (%) (Auto) 77.3 H, Lymphocytes (%) (Auto) 8.5 L, Monocytes (%) (Auto) 12.3 H, Eosinophils (%) (Auto) 1.2, Basophils (%) (Auto) 0.3, Neutrophils # (Auto) 7.2, Lymphocytes # (Auto) 0.8 L, Monocytes # (Auto) 1.1 H, Eosinophils # (Auto) 0.1, Basophils # (Auto) 0.0, Calcium Level 8.3 L Vital Signs Date Time Temp Pulse Resp B/P (MAP) Pulse Ox O2 Delivery O2 Flow Rate FiO2 09/08/18 15:15 71 18 126/67 (86) 94 09/08/18 13:50 98.5 09/03/18 18:06 Room Air I&O- Last 24 Hours up to 6 AM 09/08/18 06:00 Intake Total 600 ml Output Total 2250 ml Balance -1650 ml ALEJO GRACIA MD Sep 08, 2018 16:35
[2018-09-08] MEDS: SIMVASTATIN 10 MG TAB PO SCH (20:36)
[2018-09-08] MEDS: PRAMIPEXOLE 1 MG TAB PO SCH (20:36)
[2018-09-08 22:00] VITALS: BP 132/79
[2018-09-09] MEDS: ENOXAPARIN 100MG/1ML SYRINGE (J1650) SC SCH (05:13)
[2018-09-09] MEDS: traMADol 50 MG TAB PO PRN ×3 (05:14→22:09)
[2018-09-09 06:00] VITALS: BP 125/73
[2018-09-09 07:02] LABS: BASO % 0.4 % (0.0-1.0); EOS # 0.2 10^3/uL (0.0-0.50); EOS % 3.1 % (0.0-3.0); HEMATOCRIT 28.2 % (36.0-47.0); HEMOGLOBIN 8.2 g/dl (12.0-15.5); LYMPH % 13.5 % (24.0-44.0); MEAN CORPUSCULAR HEMOGLOBIN 25.2 pg (27.0-33.0); MEAN CORPUSCULAR HGB CONC 29.1 g/dl (32.0-36.5); MEAN CORPUSCULAR VOLUME 86.5 fl (80.0-96.0); MONO # 0.8 10^3/uL (0.0-0.8); MONO % 11.4 % (0.0-5.0); NEUTROPHILS % 71.2 % (36.0-66.0); PLATELET COUNT, AUTOMATED 242 10^3/uL (150-450); RED BLOOD COUNT 3.26 10^6/uL (4.00-5.40)
[2018-09-09 07:25] LABS: CALCIUM LEVEL 8.4 MG/DL (8.8-10.2); CREATININE FOR GFR 0.98 MG/DL (0.55-1.30); GLOMERULAR FILTRATION RATE 57.3 (>32); MAGNESIUM LEVEL 2.5 MG/DL (1.8-2.4); POTASSIUM SERUM 3.8 MEQ/L (3.5-5.1)
--- NOTE | 2018-09-09 08:54 | REP ---
Portable chest, 07:43 a.m., single AP view with the patient upright: Comparison is 09/07/2018. The the patient is rotated. Cardiac size cannot be determined because of patient rotation. There is discoid atelectasis inferiorly in the left lung, unchanged. Right lung is clear. Impression: No interval change except for patient rotation. Electronically Signed by Cliff Brink MD 09/09/2018 08:47 A
[2018-09-09] MEDS: PANTOPRAZOLE 40MG TAB (PROTONIX) PO SCH (09:02)
[2018-09-09] MEDS: ACETAMINOPHEN 500 MG TAB PO PRN (09:02)
[2018-09-09] MEDS: MAGNESIUM OXIDE 400 MG TAB (MAG-OX) PO SCH (09:02)
[2018-09-09] MEDS: LABETALOL 200 MG TAB PO SCH ×2 (09:03→21:29)
[2018-09-09] MEDS: POTASSIUM CHLORIDE 10% LIQ 20 MEQ/15 ML UDC PO SCH (09:03)
[2018-09-09 10:50] LABS: APPEARANCE, URINE CLOUDY (CLEAR); BACTERIA, URINE AUTO 1+ (NEGATIVE); BILIRUBIN, URINE AUTO NEGATIVE (NEGATIVE); BLOOD, URINE BLOOD NEGATIVE (NEGATIVE); COLOR, URINE YELLOW (YELLOW); GLUCOSE, URINE (UA) AUTO NEGATIVE (NEGATIVE); KETONE, URINE AUTO NEGATIVE (NEGATIVE); LEUKOCYTE ESTERASE, URINE AUTO 2+ (NEGATIVE); MUCUS, URINE SMALL (NEGATIVE); NITRITE, URINE AUTO NEGATIVE (NEGATIVE); PROTEIN, URINE AUTO NEGATIVE (NEGATIVE); RBC, URINE AUTO 5 /HPF (0-3); SPECIFIC GRAVITY URINE AUTO 1.015 (1.002-1.035); SQUAMOUS EPITHELIAL CELL UR AU 42 /HPF (0-6); UROBILINOGEN, URINE AUTO 0.2 mg/dL (0.0-2.0); WBC, URINE AUTO 18 /HPF (0-3)
--- NOTE | 2018-09-09 13:35 | IPNPDOC ---
Text Note Date of Service The patient was seen on 09/09/18. NOTE Subjective: Patient was seen and examined at the bedside. Currently patient still reports some weakness and neck pain. She denies any chest pain, SOB or palpitations. She reports that she is very weak and can't get out of bed. She has a Smiley catheter in place that will be discontinued. She denies any diarrhea. Objective: Vitals (See below) General: Lying in bed, no acute distress, comfortable, AAOx3 HEENT: NC, AT CVS: +S1S2 Lungs: Fair air entry b/l, auscultation is without wheezing / rhonchi / rales Abdomen: Soft, non-distended, non-tender Extremities: No evidence of edema, - Calf tenderness Assessment and plan: Dysphagia - likely 2/2 Esophageal stricture - - Patient received stool study as an outpatient had indicated positive guaiac, she had refused colonoscopy and had a barium swallow evaluation that indicated she had stricture - s/p EGD with Dr. Delarosa 09/08; indicated esophageal dysmotility and spastic- appearing lower esophageal sphincter dilation of lower esophageal sphincter is in the lower third of the esophagus, biopsies were taken - GI on consult - c/w soft diet and advanced as tolerated Chronic atrial fibrillation - c/w rate control with Diltiazem - c/w anticoagulation will start Eliquis and DC Lovenox therapeutic Fever on 09/08/18 evening - etiology unclear - Patient has remained afebrile since that point - UA 09/09: very equivocal for infection - CXR 09/09: No interval change except for patient rotation. - Urine culture pending - Will hold off on antibiotics Weakness / Reported lethargy - Hemodynamically stable / Afebrile - CT head 09/07: Diffuse moderate atrophy, vascular calcification, advanced the small vessel changes. Bilateral basal ganglia lacunar infarcts. No acute intracranial abnormality. - UA without any signs of infection - s/p Ceftriaxone x 1 dose - Will continue to monitor as diet changes - Will start physical therapy Chronic systolic congestive heart failure - No evidence of exacerbation - c/w Diuretics Anemia - Remains stable - Hg appears to be stable s/p Hypokalemia DVT prophylaxis - c/w full anticoagulation with Eliquis; s/p Lovenox VS,Fishbone, I+O VS, Fishbone, I+O Laboratory Tests 09/09/18 06:16 Red Blood Count 3.26 L, Mean Corpuscular Volume 86.5, Mean Corpuscular Hemoglobi n 25.2 L, Mean Corpuscular Hemoglobin Concent 29.1 L, Red Cell Distribution Width 16.3 H, Neutrophils (%) (Auto) 71.2 H, Lymphocytes (%) (Auto) 13.5 L, Monocytes (%) (Auto) 11.4 H, Eosinophils (%) (Auto) 3.1 H, Basophils (%) (Auto) 0.4, Neutrophils # (Auto) 5.0, Lymphocytes # (Auto) 1.0 L, Monocytes # (Auto) 0.8, Eosinophils # (Auto) 0.2, Basophils # (Auto) 0.0, Calcium Level 8.4 L Vital Signs Date Time Temp Pulse Resp B/P (MAP) Pulse Ox O2 Delivery O2 Flow Rate FiO2 09/09/18 09:03 70 125/73 09/09/18 06:00 98.6 18 91 09/03/18 18:06 Room Air l I&O- Last 24 Hours up to 6 AM 09/09/18 06:00 Intake Total 1440 ml Output Total 1700 ml Balance -260 ml ALEJO GRACIA MD Sep 09, 2018 13:35
[2018-09-09 14:00] VITALS: BP 115/59
[2018-09-09] MEDS: APIXABAN 2.5 MG TAB (ELIQUIS) PO SCH (21:28)
[2018-09-09] MEDS: SIMVASTATIN 10 MG TAB PO SCH (21:28)
[2018-09-09] MEDS: PRAMIPEXOLE 1 MG TAB PO SCH (21:31)
[2018-09-09 22:00] VITALS: BP 120/79
[2018-09-10] MEDS: traMADol 50 MG TAB PO PRN (05:54)
[2018-09-10 06:00] VITALS: BP 126/80
[2018-09-10 06:27] LABS: BASO % 0.5 % (0.0-1.0); EOS # 0.3 10^3/uL (0.0-0.50); EOS % 4.5 % (0.0-3.0); HEMATOCRIT 30.5 % (36.0-47.0); HEMOGLOBIN 8.9 g/dl (12.0-15.5); LYMPH # 0.9 10^3/uL (1.5-4.5); LYMPH % 14.7 % (24.0-44.0); MEAN CORPUSCULAR HEMOGLOBIN 24.7 pg (27.0-33.0); MEAN CORPUSCULAR HGB CONC 29.2 g/dl (32.0-36.5); MEAN CORPUSCULAR VOLUME 84.5 fl (80.0-96.0); MONO # 0.6 10^3/uL (0.0-0.8); MONO % 10.3 % (0.0-5.0); NEUTROPHILS % 69.7 % (36.0-66.0); PLATELET COUNT, AUTOMATED 311 10^3/uL (150-450); RED BLOOD COUNT 3.61 10^6/uL (4.00-5.40); WHITE BLOOD COUNT 5.8 10^3/uL (4.0-10.0)
[2018-09-10 06:49] LABS: CALCIUM LEVEL 9.2 MG/DL (8.8-10.2); CREATININE FOR GFR 0.96 MG/DL (0.55-1.30); GLOMERULAR FILTRATION RATE 58.7 (>32); MAGNESIUM LEVEL 2.7 MG/DL (1.8-2.4); POTASSIUM SERUM 4.2 MEQ/L (3.5-5.1)
[2018-09-10] MEDS: fentaNYL 12 MCG/HR PATCH TOP SCH (08:37)
[2018-09-10] MEDS: MAGNESIUM OXIDE 400 MG TAB (MAG-OX) PO SCH (08:38)
[2018-09-10] MEDS: LABETALOL 200 MG TAB PO SCH ×2 (08:38→20:07)
[2018-09-10] MEDS: TORSEMIDE 20 MG TAB PO SCH ×2 (08:38→20:07)
[2018-09-10] MEDS: APIXABAN 2.5 MG TAB (ELIQUIS) PO SCH ×2 (08:38→20:06)
[2018-09-10] MEDS: cefTRIAXone SOD 1 GM in D5W MINI-BAG PLUS 50 ML IV SCH (08:38)
[2018-09-10] MEDS: POTASSIUM CHLORIDE 10% LIQ 20 MEQ/15 ML UDC PO SCH (08:38)
[2018-09-10] MEDS: PANTOPRAZOLE 40MG TAB (PROTONIX) PO SCH (08:38)
[2018-09-10] MEDS: ACETAMINOPHEN 500 MG TAB PO PRN ×2 (10:04→20:08)
--- NOTE | 2018-09-10 13:17 | IPNPDOC ---
Text Note Date of Service The patient was seen on 09/10/18. NOTE Subjective: Patient was seen and examined at the bedside. . Currently, patient reports that she is feeling slightly better. She denies any nausea, vomiting, abdominal pain, has been eating without any difficulty. Denies any chest pain, shortness of breath or palpitation this morning. Objective: Vitals (See below) General: Lying in bed, no acute distress, comfortable, AAOx3 HEENT: NC, AT CVS: +S1S2 Lungs: Fair air entry b/l, auscultation is without any rhonchi, rales or wheezing Abdomen: Soft, is without any tenderness or distention Extremities: Lower extremities are without any edema, - Calf tenderness Assessment and plan: s/p Dysphagia - likely 2/2 Esophageal stricture - Patient received stool study as an outpatient had indicated positive guaiac, she had refused colonoscopy and had a barium swallow evaluation that indicated she had stricture - s/p EGD with Dr. Delarosa 09/08; indicated esophageal dysmotility and spastic- appearing lower esophageal sphincter dilation of lower esophageal sphincter is in the lower third of the esophagus, biopsies were taken - GI on consult - c/w soft diet and advanced as tolerated Chronic atrial fibrillation - c/w rate control with Diltiazem - c/w anticoagulation with Eliquis; s/p Lovenox therapeutic Fever - likely 2/2 UTI - Patient has remained afebrile since that point - UA 09/09: very equivocal for infection - CXR 09/09: No interval change except for patient rotation. - Urine culture 09/07: Streptococcus anginosus, Aerococcus urinae - Will hold off on antibiotics Weakness / Reported lethargy - Hemodynamically stable / Afebrile - CT head 09/07: Diffuse moderate atrophy, vascular calcification, advanced the small vessel changes. Bilateral basal ganglia lacunar infarcts. No acute intracranial abnormality. - UA without any signs of infection - Ceftriaxone restarted (Day #1) - c/w physical therapy Chronic systolic congestive heart failure - No evidence of exacerbation - c/w Diuretics Anemia - Remains stable - Hg appears to be stable s/p Hypokalemia DVT prophylaxis - c/w full anticoagulation with Eliquis; s/p Lovenox VS,Fishbone, I+O VS, Fishbone, I+O Laboratory Tests 09/10/18 06:07 Red Blood Count 3.61 L, Mean Corpuscular Volume 84.5, Mean Corpuscular Hemoglobin 24.7 L, Mean Corpuscular Hemoglobin Concent 29.2 L, Red Cell Distribution Width 16.3 H, Neutrophils (%) (Auto) 69.7 H, Lymphocytes (%) (Auto) 14.7 L, Monocytes (%) (Auto) 10.3 H, Eosinophils (%) (Auto) 4.5 H, Basophils (%) (Auto) 0.5, Neutrophils # (Auto) 4.0, Lymphocytes # (Auto) 0.9 L, Monocytes # (Auto) 0.6, Eosinophils # (Auto) 0.3, Basophils # (Auto) 0.0, Calcium Level 9.2 Vital Signs Date Time Temp Pulse Resp B/P (MAP) Pulse Ox O2 Delivery O2 Flow Rate FiO2 09/10/18 09:54 16 09/10/18 08:38 79 126/80 09/10/18 08:00 1.0 09/10/18 06:00 98.0 96 I&O- Last 24 Hours up to 6 AM 09/10/18 06:00 Intake Total 1700 ml Output Total 1000 ml Balance 700 ml ALEJO GRACIA MD Sep 10, 2018 13:17
[2018-09-10 13:50] VITALS: BP 125/60
[2018-09-10 13:51] LABS: CK-MB VALUE MASS < 1.0 NG/ML (<3.6); CPK CREATINE PHOSPHOKINASE 23 U/L (26-192); MB/CK RELATIVE INDEX 4.35 (< OR =4); TROPONIN I < 0.02 NG/ML (< 0.10)
--- NOTE | 2018-09-10 19:18 | ECGEPIP ---
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 Repolarization abnormalities of underlying spontaneous QRS complexes appear less marked than 09/03/18. Electronically Signed on 09-10-2018 19:18:00 EDT by Sonu Iraheta
[2018-09-10 19:30] VITALS: BP 122/62
[2018-09-10] MEDS: SIMVASTATIN 10 MG TAB PO SCH (20:06)
[2018-09-10] MEDS: PRAMIPEXOLE 1 MG TAB PO SCH (20:08)
[2018-09-10 22:00] VITALS: BP 102/60
[2018-09-11 06:00] VITALS: BP 100/52
[2018-09-11 06:50] LABS: BASO % 0.3 % (0.0-1.0); EOS % 0.3 % (0.0-3.0); HEMOGLOBIN 7.9 g/dl (12.0-15.5); LYMPH # 0.7 10^3/uL (1.5-4.5); LYMPH % 6.3 % (24.0-44.0); MEAN CORPUSCULAR HEMOGLOBIN 25.2 pg (27.0-33.0); MEAN CORPUSCULAR HGB CONC 29.3 g/dl (32.0-36.5); MONO # 1.4 10^3/uL (0.0-0.8); MONO % 12.7 % (0.0-5.0); NEUTROPHILS # 8.7 10^3/uL (1.8-7.7); NEUTROPHILS % 79.9 % (36.0-66.0); PLATELET COUNT, AUTOMATED 270 10^3/uL (150-450); RED BLOOD COUNT 3.14 10^6/uL (4.00-5.40); WHITE BLOOD COUNT 10.9 10^3/uL (4.0-10.0)
[2018-09-11 07:14] LABS: CALCIUM LEVEL 9.1 MG/DL (8.8-10.2); CREATININE FOR GFR 1.19 MG/DL (0.55-1.30); GLOMERULAR FILTRATION RATE 45.8 (>32); MAGNESIUM LEVEL 2.6 MG/DL (1.8-2.4); POTASSIUM SERUM 4.4 MEQ/L (3.5-5.1)
[2018-09-11] MEDS: PANTOPRAZOLE 40MG TAB (PROTONIX) PO SCH (08:04)
[2018-09-11] MEDS: cefTRIAXone SOD 1 GM in D5W MINI-BAG PLUS 50 ML IV SCH (08:04)
[2018-09-11] MEDS: POTASSIUM CHLORIDE 10% LIQ 20 MEQ/15 ML UDC PO SCH (08:04)
[2018-09-11] MEDS: APIXABAN 2.5 MG TAB (ELIQUIS) PO SCH ×2 (08:04→20:40)
[2018-09-11] MEDS: MAGNESIUM OXIDE 400 MG TAB (MAG-OX) PO SCH (08:05)
[2018-09-11] MEDS: LABETALOL 200 MG TAB PO SCH ×2 (08:14→20:40)
[2018-09-11] MEDS: TORSEMIDE 20 MG TAB PO SCH ×2 (08:15→13:43)
[2018-09-11] MEDS: SENNA 8.6 MG TAB (SENOKOT) PO PRN (10:31)
--- NOTE | 2018-09-11 12:17 | REP ---
Soft-tissue neck CT study without contrast: History: Neck pain. No comparison neck imaging. 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 The parotid and submandibular glands are normal and symmetric. Thyroid lobes are symmetric. The right internal jugular vein is larger in caliber than its left-sided counterpart, but this is not abnormal. No other vascular finding is seen. No neck mass or adenopathy is appreciated. Minimal vascular calcification is seen in the carotids. 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 No bony destructive lesion is seen. Visualized paranasal sinuses are clear. Impression: No neck mass or adenopathy is seen. Electronically Signed by Arnie Pitts MD 09/11/2018 01:02 P
--- NOTE | 2018-09-11 12:36 | IPNPDOC ---
Text Note Date of Service The patient was seen on 09/11/18. NOTE Subjective: Patient was seen and examined at the bedside. Patient reports her energy levels have improved this morning. She denies any urinary discomfort or abdominal pain. Denies any diarrhea. Denies any CP, SOB or palpitations. She still reports some neck discomfort. Objective: Vitals (See below) General: Lying in bed, no acute distress, comfortable, AAOx3 HEENT: NC, AT CVS: +S1S2 Lungs: Fair air entry b/l, no evidence of rhonchi / rales / wheezing Abdomen: Soft, ND/ NT Extremities: No edema at LE, - Calf tenderness Assessment and plan: s/p Dysphagia - likely 2/2 Esophageal stricture - Patient received stool study as an outpatient had indicated positive guaiac, she had refused colonoscopy and had a barium swallow evaluation that indicated she had stricture - s/p EGD with Dr. Delarosa 09/08; indicated esophageal dysmotility and spastic- appearing lower esophageal sphincter dilation of lower esophageal sphincter is in the lower third of the esophagus, biopsies were taken - GI on consult - c/w soft diet and advanced as tolerated Neck pain - Neck CT 09/11: No neck mass or adenopathy is seen. Degenerative changes noted - No focal neurologic deficits noted - c/w Tylenol PRN Chronic atrial fibrillation - c/w rate control with Diltiazem - c/w anticoagulation with Eliquis; s/p Lovenox therapeutic Fever - likely 2/2 UTI - Patient remains afebrile for >24 hours - Patient has remained afebrile since that point - UA 09/09: very equivocal for infection - CXR 09/09: No interval change except for patient rotation. - Urine culture 09/07: Streptococcus anginosus, Aerococcus urinae - c/w Ceftriaxone (Day #2) Weakness / Reported lethargy - possibly 2/[address] head 09/07: Diffuse moderate atrophy, vascular calcification, advanced the small vessel changes. Bilateral basal ganglia lacunar infarcts. No acute intracranial abnormality. - See above - c/w physical therapy Chronic systolic congestive heart failure - No evidence of exacerbation - c/w Diuretics Anemia - Remains stable - Hg appears to be stable s/p Hypokalemia DVT prophylaxis - c/w full anticoagulation with Eliquis; s/p Lovenox Disposition: - Anticipate rehab placement when bed is available VS,Fishbone, I+O VS, Fishbone, I+O Laboratory Tests 09/11/18 06:24 Red Blood Count 3.14 L, Mean Corpuscular Volume 86.0, Mean Corpuscular Hemoglobin 25.2 L, Mean Corpuscular Hemoglobin Concent 29.3 L, Red Cell Distribution Width 16.7 H, Neutrophils (%) (Auto) 79.9 H, Lymphocytes (%) (Auto) 6.3 L, Monocytes (%) (Auto) 12.7 H, Eosinophils (%) (Auto) 0.3, Basophils (%) (Auto) 0.3, Neutrophils # (Auto) 8.7 H, Lymphocytes # (Auto) 0.7 L, Monocytes # (Auto) 1.4 H, Eosinophils # (Auto) 0.0, Basophils # (Auto) 0.0, Calcium Level 9.1 Vital Signs Date Time Temp Pulse Resp B/P (MAP) Pulse Ox O2 Delivery O2 Flow Rate FiO2 09/11/18 08:14 71 98/60 09/11/18 06:00 98.8 18 96 1.0 I&O- Last 24 Hours up to 6 AM 09/11/18 05:59 Intake Total 1160 ml Output Total 700 ml Balance 460 ml ALEJO GRACIA MD Sep 11, 2018 12:36
[2018-09-11 14:00] VITALS: BP 143/69
[2018-09-11] MEDS: SIMVASTATIN 10 MG TAB PO SCH (20:40)
[2018-09-11] MEDS: PRAMIPEXOLE 1 MG TAB PO SCH (20:40)
[2018-09-11 22:16] VITALS: BP 118/56
[2018-09-12] MEDS: traMADol 50 MG TAB PO PRN ×4 (00:39→20:19)
[2018-09-12 06:00] VITALS: BP 110/54
[2018-09-12] MEDS: TORSEMIDE 20 MG TAB PO SCH ×2 (06:25→13:54)
[2018-09-12 07:24] LABS: BASO % 0.2 % (0.0-1.0); EOS # 0.1 10^3/uL (0.0-0.50); EOS % 0.9 % (0.0-3.0); HEMATOCRIT 25.9 % (36.0-47.0); HEMOGLOBIN 7.7 g/dl (12.0-15.5); LYMPH # 0.7 10^3/uL (1.5-4.5); LYMPH % 7.3 % (24.0-44.0); MEAN CORPUSCULAR HEMOGLOBIN 24.7 pg (27.0-33.0); MEAN CORPUSCULAR HGB CONC 29.7 g/dl (32.0-36.5); MONO # 1.2 10^3/uL (0.0-0.8); MONO % 11.9 % (0.0-5.0); NEUTROPHILS % 79.1 % (36.0-66.0); PLATELET COUNT, AUTOMATED 290 10^3/uL (150-450); RED BLOOD COUNT 3.12 10^6/uL (4.00-5.40); WHITE BLOOD COUNT 10.1 10^3/uL (4.0-10.0)
[2018-09-12 07:47] LABS: CALCIUM LEVEL 8.9 MG/DL (8.8-10.2); CREATININE FOR GFR 0.98 MG/DL (0.55-1.30); GLOMERULAR FILTRATION RATE 57.3 (>32); MAGNESIUM LEVEL 2.5 MG/DL (1.8-2.4); POTASSIUM SERUM 3.7 MEQ/L (3.5-5.1)
[2018-09-12] MEDS: POTASSIUM CHLORIDE 10% LIQ 20 MEQ/15 ML UDC PO SCH (08:04)
[2018-09-12] MEDS: MAGNESIUM OXIDE 400 MG TAB (MAG-OX) PO SCH (08:05)
[2018-09-12] MEDS: PANTOPRAZOLE 40MG TAB (PROTONIX) PO SCH (08:05)
[2018-09-12] MEDS: cefTRIAXone SOD 1 GM in D5W MINI-BAG PLUS 50 ML IV SCH (08:05)
[2018-09-12] MEDS: APIXABAN 2.5 MG TAB (ELIQUIS) PO SCH ×2 (08:05→21:28)
[2018-09-12] MEDS: LABETALOL 200 MG TAB PO SCH ×2 (08:12→21:29)
[2018-09-12 08:50] LABS: PERCENT SATURATION 3.5 % (13.2-45.0)
--- NOTE | 2018-09-12 13:08 | IPNPDOC ---
Text Note Date of Service The patient was seen on 09/12/18. NOTE Subjective: Patient was seen and examined at the bedside. Currently patient still feels fatigued. Denies any CP, SOB or palpitations. Denies any N/V, abdominal pain, C/D or Dysuria. Objective: Vitals (See below) General: Lying in bed, no acute distress, comfortable, AAOx3 HEENT: NC, AT CVS: +S1S2 Lungs: Fair air entry b/l, no appreciable rhonchi / rales / wheezing Abdomen: Soft, non-distended / non-tender Extremities: No edema at LE, - Calf tenderness Assessment and plan: s/p Dysphagia - likely 2/2 Esophageal stricture - Patient received stool study as an outpatient had indicated positive guaiac, she had refused colonoscopy and had a barium swallow evaluation that indicated she had stricture - s/p EGD with Dr. Delarosa 09/08; indicated esophageal dysmotility and spastic- appearing lower esophageal sphincter dilation of lower esophageal sphincter is in the lower third of the esophagus, biopsies were taken - GI on consult - c/w soft diet and advanced as tolerated Normocytic Anemia - Hg has trended down - Will check iron panel, b12, folate, reticulocyte count - Will transfuse 2 units PRBC - Will check stool for occult blood Neck pain - Neck CT 09/11: No neck mass or adenopathy is seen. Degenerative changes noted - No focal neurologic deficits noted - c/w Tylenol PRN Chronic atrial fibrillation - c/w rate control with Diltiazem - c/w anticoagulation with Eliquis; s/p Lovenox therapeutic Fever - likely 2/2 UTI - Patient remains afebrile for >24 hours - Patient has remained afebrile since that point - UA 09/09: very equivocal for infection - CXR 09/09: No interval change except for patient rotation. - Urine culture 09/07: Streptococcus anginosus, Aerococcus urinae - c/w Ceftriaxone (Day #3) Weakness / Reported lethargy - possibly 2/[address] head 09/07: Diffuse moderate atrophy, vascular calcification, advanced the small vessel changes. Bilateral basal ganglia lacunar infarcts. No acute intracranial abnormality. - See above - c/w physical therapy Chronic systolic congestive heart failure - No evidence of exacerbation - c/w Diuretics s/p Hypokalemia DVT prophylaxis - c/w full anticoagulation with Eliquis; s/p Lovenox Disposition: - Anticipate rehab placement when bed is available VSAnibal, I+O VS, Anibal, I+O Laboratory Tests 09/12/18 06:40 Red Blood Count 3.12 L, Mean Corpuscular Volume 83.0, Mean Corpuscular Hemoglobin 24.7 L, Mean Corpuscular Hemoglobin Concent 29.7 L, Red Cell Distribution Width 17.0 H, Neutrophils (%) (Auto) 79.1 H, Lymphocytes (%) (Auto) 7.3 L, Monocytes (%) (Auto) 11.9 H, Eosinophils (%) (Auto) 0.9, Basophils (%) (Auto) 0.2, Neutrophils # (Auto) 8.0 H, Lymphocytes # (Auto) 0.7 L, Monocytes # (Auto) 1.2 H, Eosinophils # (Auto) 0.1, Basophils # (Auto) 0.0, Calcium Level 8.9 Vital Signs Date Time Temp Pulse Resp B/P (MAP) Pulse Ox O2 Delivery O2 Flow Rate FiO2 09/12/18 08:12 80 114/60 09/12/18 07:00 12 09/12/18 06:00 99.3 91 09/11/18 22:16 1.0 I&O- Last 24 Hours up to 6 AM 09/12/18 06:00 Intake Total 630 ml Output Total 800 ml Balance -170 ml ALEJO GRACIA MD Sep 12, 2018 13:07
[2018-09-12 14:00] VITALS: BP_SYST 108; BP_SYST 120; BP_DIAS 58; BP_DIAS 80
[2018-09-12] MEDS: SIMVASTATIN 10 MG TAB PO SCH (21:28)
[2018-09-12] MEDS: PRAMIPEXOLE 1 MG TAB PO SCH (21:29)
[2018-09-12 22:00] VITALS: BP 126/64
[2018-09-13] MEDS: ACETAMINOPHEN 500 MG TAB PO PRN (00:52)
[2018-09-13] MEDS: traMADol 50 MG TAB PO PRN ×4 (02:36→20:57)
[2018-09-13 06:00] VITALS: BP 120/62
[2018-09-13] MEDS: TORSEMIDE 20 MG TAB PO SCH ×2 (06:36→13:59)
[2018-09-13 07:29] LABS: BASO % 0.3 % (0.0-1.0); EOS # 0.1 10^3/uL (0.0-0.50); EOS % 1.1 % (0.0-3.0); HEMATOCRIT 31.2 % (36.0-47.0); HEMOGLOBIN 9.6 g/dl (12.0-15.5); LYMPH # 0.6 10^3/uL (1.5-4.5); LYMPH % 6.9 % (24.0-44.0); MEAN CORPUSCULAR HEMOGLOBIN 25.2 pg (27.0-33.0); MEAN CORPUSCULAR HGB CONC 30.8 g/dl (32.0-36.5); MEAN CORPUSCULAR VOLUME 81.9 fl (80.0-96.0); MONO # 0.9 10^3/uL (0.0-0.8); MONO % 10.3 % (0.0-5.0); NEUTROPHILS # 7.4 10^3/uL (1.8-7.7); NEUTROPHILS % 80.7 % (36.0-66.0); PLATELET COUNT, AUTOMATED 335 10^3/uL (150-450); RED BLOOD COUNT 3.81 10^6/uL (4.00-5.40); WHITE BLOOD COUNT 9.1 10^3/uL (4.0-10.0)
[2018-09-13 07:49] LABS: CREATININE FOR GFR 0.96 MG/DL (0.55-1.30); GLOMERULAR FILTRATION RATE 58.7 (>32); MAGNESIUM LEVEL 2.2 MG/DL (1.8-2.4); POTASSIUM SERUM 3.4 MEQ/L (3.5-5.1)
[2018-09-13] MEDS: MAGNESIUM OXIDE 400 MG TAB (MAG-OX) PO SCH (08:35)
[2018-09-13] MEDS: APIXABAN 2.5 MG TAB (ELIQUIS) PO SCH ×2 (08:35→20:55)
[2018-09-13] MEDS: PANTOPRAZOLE 40MG TAB (PROTONIX) PO SCH (08:35)
[2018-09-13] MEDS: POTASSIUM CHLORIDE 10% LIQ 20 MEQ/15 ML UDC PO SCH (08:36)
[2018-09-13] MEDS: fentaNYL 12 MCG/HR PATCH TOP SCH (08:38)
[2018-09-13] MEDS: cefTRIAXone SOD 1 GM in D5W MINI-BAG PLUS 50 ML IV SCH (08:39)
[2018-09-13] MEDS: LABETALOL 200 MG TAB PO SCH ×2 (08:42→20:56)
[2018-09-13] MEDS: TIMOLOL MALEATE 0.5% OPHTH SOLN 5 ML OU SCH ×2 (11:00→20:56)
[2018-09-13] MEDS: BRIMONIDINE 0.1% OPHTH SOLN 5 ML OU SCH ×2 (11:00→20:56)
--- NOTE | 2018-09-13 11:57 | IPNPDOC ---
Text Note Date of Service The patient was seen on 09/13/18. NOTE Subjective: Patient was seen and examined at the bedside. Patient reports that they're feeling much better this morning after receiving 2 units of blood. They deny chest pain, shortness of breath or palpitations. They have been working with physical therapy. Still reports some neck pain. Denies abdominal pain, diarrhea or discomfort with urination. Objective: Vitals (See below) General: Lying in bed, no acute distress, comfortable, AAOx3 HEENT: NC, AT CVS: +S1S2 Lungs: Air entry remains fair bilaterally without rales, rhonchi or wheezes Abdomen: Nondistended, nontender, and remains off Extremities: No evidence of lower extremity edema, - Calf tenderness Assessment and plan: s/p Dysphagia - likely 2/2 Esophageal stricture - Patient received stool study as an outpatient had indicated positive guaiac, she had refused colonoscopy and had a barium swallow evaluation that indicated she had stricture - s/p EGD with Dr. Delarosa 09/08; indicated esophageal dysmotility and spastic- appearing lower esophageal sphincter dilation of lower esophageal sphincter is in the lower third of the esophagus, biopsies were taken - GI on consult - c/w soft diet and advanced as tolerated Normocytic Anemia - Hg has trended down - Hg has improved appropriately; s/p 2 units PRBC - Iron panel consistent with deficiency - Stool for occult blood pending - c/w Ferrous sulfate Neck pain - Neck CT 09/11: No neck mass or adenopathy is seen. Degenerative changes noted - No focal neurologic deficits noted - c/w Tylenol PRN Chronic atrial fibrillation - c/w rate control with Diltiazem - c/w anticoagulation with Eliquis; s/p Lovenox therapeutic Fever - likely 2/2 UTI - Patient remains afebrile for >24 hours - Patient has remained afebrile since that point - UA 09/09: very equivocal for infection - CXR 09/09: No interval change except for patient rotation. - Urine culture 09/07: Streptococcus anginosus, Aerococcus urinae - c/w Ceftriaxone (Day #4) Weakness / Reported lethargy - possibly 2/[address] head 09/07: Diffuse moderate atrophy, vascular calcification, advanced the small vessel changes. Bilateral basal ganglia lacunar infarcts. No acute intracranial abnormality. - See above - c/w physical therapy Chronic systolic congestive heart failure - No evidence of exacerbation - c/w Diuretics s/p Hypokalemia DVT prophylaxis - c/w full anticoagulation with Eliquis; s/p Lovenox Disposition: - Anticipate rehab placement when bed is available; possibly Friday VS,Fishbone, I+O VS, Fishbone, I+O Laboratory Tests 09/13/18 07:02 Red Blood Count 3.81 L, Mean Corpuscular Volume 81.9, Mean Corpuscular Hemoglobin 25.2 L, Mean Corpuscular Hemoglobin Concent 30.8 L, Red Cell Distribution Width 16.4 H, Neutrophils (%) (Auto) 80.7 H, Lymphocytes (%) (Auto) 6.9 L, Monocytes (%) (Auto) 10.3 H, Eosinophils (%) (Auto) 1.1, Basophils (%) (Auto) 0.3, Neutrophils # (Auto) 7.4, Lymphocytes # (Auto) 0.6 L, Monocytes # (Auto) 0.9 H, Eosinophils # (Auto) 0.1, Basophils # (Auto) 0.0, Calcium Level 9.0 Vital Signs Date Time Temp Pulse Resp B/P (MAP) Pulse Ox O2 Delivery O2 Flow Rate FiO2 09/13/18 09:17 18 09/13/18 08:42 88 118/68 09/13/18 06:00 99.2 93 09/11/18 22:16 1.0 I&O- Last 24 Hours up to 6 AM 09/13/18 06:00 Intake Total 1300 ml Output Total 1850 ml Balance -550 ml ALEJO GRACIA MD Sep 13, 2018 11:57
[2018-09-13 14:00] VITALS: BP 110/50
[2018-09-13] MEDS: PRAMIPEXOLE 1 MG TAB PO SCH (20:55)
[2018-09-13] MEDS: FERROUS SULFATE 325MG TAB PO SCH (20:55)
[2018-09-13] MEDS: SIMVASTATIN 10 MG TAB PO SCH (20:55)
[2018-09-13 22:00] VITALS: BP 116/64
[2018-09-14] MEDS: ACETAMINOPHEN 500 MG TAB PO PRN (03:20)
[2018-09-14 05:51] LABS: BASO % 0.5 % (0.0-1.0); EOS # 0.2 10^3/uL (0.0-0.50); EOS % 1.7 % (0.0-3.0); HEMATOCRIT 32.7 % (36.0-47.0); LYMPH # 0.8 10^3/uL (1.5-4.5); LYMPH % 8.8 % (24.0-44.0); MEAN CORPUSCULAR HEMOGLOBIN 25.1 pg (27.0-33.0); MEAN CORPUSCULAR HGB CONC 30.6 g/dl (32.0-36.5); MEAN CORPUSCULAR VOLUME 82.2 fl (80.0-96.0); MONO # 0.9 10^3/uL (0.0-0.8); MONO % 10.5 % (0.0-5.0); NEUTROPHILS # 6.8 10^3/uL (1.8-7.7); NEUTROPHILS % 77.9 % (36.0-66.0); PLATELET COUNT, AUTOMATED 378 10^3/uL (150-450); RED BLOOD COUNT 3.98 10^6/uL (4.00-5.40); WHITE BLOOD COUNT 8.8 10^3/uL (4.0-10.0)
[2018-09-14 06:00] VITALS: BP 110/60
[2018-09-14] MEDS: TORSEMIDE 20 MG TAB PO SCH ×2 (06:31→13:47)
[2018-09-14 06:34] LABS: CALCIUM LEVEL 9.2 MG/DL (8.8-10.2); CREATININE FOR GFR 1.05 MG/DL (0.55-1.30); GLOMERULAR FILTRATION RATE 52.9 (>32); MAGNESIUM LEVEL 2.3 MG/DL (1.8-2.4); POTASSIUM SERUM 3.6 MEQ/L (3.5-5.1)
[2018-09-14] MEDS: FERROUS SULFATE 325MG TAB PO SCH (08:52)
[2018-09-14] MEDS: POTASSIUM CHLORIDE 10% LIQ 20 MEQ/15 ML UDC PO SCH (08:52)
[2018-09-14] MEDS: cefTRIAXone SOD 1 GM in D5W MINI-BAG PLUS 50 ML IV SCH (08:52)
[2018-09-14 08:53] VITALS: BP 110/60
[2018-09-14] MEDS: LABETALOL 200 MG TAB PO SCH (08:53)
[2018-09-14] MEDS: PANTOPRAZOLE 40MG TAB (PROTONIX) PO SCH (08:53)
[2018-09-14] MEDS: APIXABAN 2.5 MG TAB (ELIQUIS) PO SCH (08:53)
[2018-09-14] MEDS: traMADol 50 MG TAB PO PRN (08:53)
[2018-09-14] MEDS: MAGNESIUM OXIDE 400 MG TAB (MAG-OX) PO SCH (08:53)
[2018-09-14] MEDS: TIMOLOL MALEATE 0.5% OPHTH SOLN 5 ML OU SCH (08:54)
[2018-09-14] MEDS: BRIMONIDINE 0.1% OPHTH SOLN 5 ML OU SCH (08:54)
[2018-09-14] MEDS ORDERED: CEFD1CAP8 PO (10:18)
[2018-09-14] MEDS ORDERED: FERR325T18 PO (10:18)
[2018-09-14 10:19] LABS: FOLATE 10.7 NG/ML (>5.4)
[2018-09-14 14:00] VITALS: BP 122/78
--- NOTE | 2018-09-14 14:56 | DS.PDOC ---
Discharge Summary General Date of Admission Sep 03, 2018 at 21:05 Date of Discharge 09/14/2018 Discharge Summary PROCEDURES PERFORMED DURING STAY: EGD and balloon dilation by Dr. Pedro Delarosa on 09/08/2018 ADMITTING DIAGNOSES / DISCHARGE DIAGNOSES: s/p Dysphagia - likely 2/2 Esophageal stricture Normocytic Anemia Neck pain Chronic atrial fibrillation Fever - likely 2/2 UTI Weakness / Reported lethargy - possibly 2/2 infection Chronic systolic congestive heart failure s/p Hypokalemia DVT prophylaxis COMPLICATIONS/CHIEF COMPLAINT: Dysphagia HISTORY OF PRESENT ILLNESS: Patient is an 88-year-old female with past medical history of A. fib (on eliquis, congestive heart failure, pacemaker, hypertension, dyslipidemia, compression fractures, who presented to the ER with complaints of difficulty swallowing. Patient was admitted to hospitalist service for further evaluation and management. Gastroenterology was called on consultation for an upper endoscopy. HOSPITAL COURSE: s/p Dysphagia - likely 2/2 Esophageal stricture - Patient received stool study as an outpatient had indicated positive guaiac, she had refused colonoscopy and had a barium swallow evaluation that indicated she had stricture - s/p EGD with Dr. Delarosa 09/08; indicated esophageal dysmotility and spastic- appearing lower esophageal sphincter dilation of lower esophageal sphincter is in the lower third of the esophagus, biopsies were taken - GI on consult - c/w soft diet and advanced as tolerated - Will have outpatient follow-up with gastroenterology within 7 days Normocytic Anemia - Hg has improved appropriately; s/p 2 units PRBC - Has remained stable - Iron panel consistent with deficiency - Stool for occult blood pending - c/w Ferrous sulfate Neck pain - Neck CT 09/11: No neck mass or adenopathy is seen. Degenerative changes noted - No focal neurologic deficits noted - c/w Tylenol PRN Chronic atrial fibrillation - c/w rate control with Diltiazem - c/w anticoagulation with Eliquis; s/p Lovenox therapeutic Fever - likely 2/2 UTI - Patient remains afebrile for >24 hours - Patient has remained afebrile since that point - UA 09/09: very equivocal for infection - CXR 09/09: No interval change except for patient rotation. - Urine culture 09/07: Streptococcus anginosus, Aerococcus urinae - c/w Ceftriaxone (Day #5); will complete antibiotic course as an outpatient with Cefdinir - Will have outpatient follow-up with primary care provider within 7 days Weakness / Reported lethargy - possibly 2/[address] head 09/07: Diffuse moderate atrophy, vascular calcification, advanced the small vessel changes. Bilateral basal ganglia lacunar infarcts. No acute intracranial abnormality. - See above - c/w physical therapy Chronic systolic congestive heart failure - No evidence of exacerbation - c/w Diuretics s/p Hypokalemia DVT prophylaxis - c/w full anticoagulation with Eliquis; s/p Lovenox DISCHARGE MEDICATIONS: Please see below. ALLERGIES: Please see below. PHYSICAL EXAMINATION ON DISCHARGE: Vitals (See below) General: Lying in bed, no acute distress, comfortable, AAOx3 HEENT: NC, AT CVS: +S1S2 Lungs: No wheezing, rhonchi or rales Abdomen: Soft, nondistended, nontender Extremities: Lower extremities are free of any edema, - Calf tenderness LABORATORY DATA: Please see below. ACTIVITY: [As tolerated]. DISCHARGE PLAN: Follow-up with Dr. Nicki Brandon and Dr. Delarosa within 7 days Remain compliant with treatment plan and medications Return to ER if you experience any problems DISPOSITION: Home with services DISCHARGE CONDITION: [Stable]. TIME SPENT ON DISCHARGE: 40 minutes Vital Signs/I&Os Vital Signs Date Time Temp Pulse Resp B/P (MAP) Pulse Ox O2 Delivery O2 Flow Rate FiO2 09/14/18 09:23 16 09/14/18 08:53 70 110/60 09/14/18 06:00 98.0 93 09/11/18 22:16 1.0 I&O- Last 24 Hours up to 6 AM 09/14/18 06:00 Intake Total 1510 ml Output Total 1750 ml Balance -240 ml Laboratory Data Labs 24H Laboratory Tests 2 09/14/18 05:26: Immature Granulocyte % (Auto) 0.6, White Blood Count 8.8, Red Blood Count 3.98L, Hemoglobin 10.0L, Hematocrit 32.7L, Mean Corpuscular Volume 82.2, Mean Corpuscular Hemoglobin 25.1L, Mean Corpuscular Hemoglobin Concent 30.6L, Red Cell Distribution Width 16.8H, Platelet Count 378, Neutrophils (%) (Auto) 77.9H, Lymphocytes (%) (Auto) 8.8L, Monocytes (%) (Auto) 10.5H, Eosinophils (%) (Auto) 1.7, Basophils (%) (Auto) 0.5, Neutrophils # (Auto) 6.8, Lymphocytes # (Auto) 0.8L, Monocytes # (Auto) 0.9H, Eosinophils # (Auto) 0.2, Basophils # (Auto) 0.0, Nucleated Red Blood Cells % (auto) 0.0, Anion Gap 8, Glomerular Filtration Rate 52.9, Blood Urea Nitrogen 27H, Creatinine 1.05, Sodium Level 140, Potassium Level 3.6, Chloride Level 101, Carbon Dioxide Level 31, Calcium Level 9.2, Magnesium Level 2.3 CBC/BMP Laboratory Tests 09/14/18 05:26 Red Blood Count 3.98 L, Mean Corpuscular Volume 82.2, Mean Corpuscular Hemoglobin 25.1 L, Mean Corpuscular Hemoglobin Concent 30.6 L, Red Cell Distribution Width 16.8 H, Neutrophils (%) (Auto) 77.9 H, Lymphocytes (%) (Auto) 8.8 L, Monocytes (%) (Auto) 10.5 H, Eosinophils (%) (Auto) 1.7, Basophils (%) (Auto) 0.5, Neutrophils # (Auto) 6.8, Lymphocytes # (Auto) 0.8 L, Monocytes # (Auto) 0.9 H, Eosinophils # (Auto) 0.2, Basophils # (Auto) 0.0, Calcium Level 9.2 Microbiology Microbiology 09/14/18 Stool Occult Blood ([facility]) - Final, Complete 09/07/18 Urine Culture - Final, Complete Streptococcus Anginosus Grp Aerococcus Urinae Discharge Medications Scheduled Apixaban (Eliquis) 2.5 Mg Tablet, 2.5 MG PO BID, (Reported) Brimonidine Tartrate/Timolol (Combigan 0.2%-0.5% Eye Drops) 5 Ml Drops, 1 DROP OU BID, (Reported) Calcium Carbonate/Vitamin D3 (Calcium 500+D Tablet Chew) 1 Each Tab.chew, 1 CHW PO QPM, (Reported) Cefdinir (Cefdinir) 300 Mg Capsule, 1 CAP PO BID Diltiazem HCl (Cartia Xt) 120 Mg Cap.er.24h, 120 MG PO QPM, (Reported) Fentanyl (Fentanyl) 12 Mcg Patch.td72, 12 MCG TOP Q72H, (Reported) Ferrous Sulfate (Ferrous Sulfate) 325 Mg Tablet, 325 MG PO BID Labetalol HCl (Labetalol HCl) 200 Mg Tablet, 200 MG PO BID, (Reported) Lutein/Zeaxanthin (Ocuvite Lutein 25-5 mg Softgel) 1 Each Capsule, 1 CAP PO DAILY, (Reported) AT 1200 Magnesium Oxide (Magnesium) 400 Mg Capsule, 400 MG PO DAILY, (Reported) Pantoprazole Sodium (Pantoprazole Sodium) 40 Mg Tablet.dr, 40 MG PO DAILY, (Reported) Potassium Chloride (Potassium Chloride) 10 Meq Tab.er.prt, 10 MEQ PO BID, (Reported) Pramipexole Di-HCl (Mirapex) 0.5 Mg Tablet, 0.5 MG PO QHS, (Reported) Simvastatin (Zocor) 10 Mg Tablet, 10 MG PO QHS, (Reported) Torsemide (Torsemide) 20 Mg Tablet, 40 MG PO BID, (Reported) Vitamin E (Dl,Tocopheryl Acet) (Vitamin E) 400 Unit Capsule, 400 UNIT PO DAILY, (Reported) AT 1200 Scheduled PRN Acetaminophen (Acetaminophen) 500 Mg Tablet, 500 MG PO QID PRN for PAIN, (Reported) PATIENT STATES SHE TAKES ONE TAB WITH TRAMADOL DOSE Tramadol HCl (Tramadol HCl) 50 Mg Tablet, 50 MG PO QID PRN for PAIN, (Reported) Allergies Coded Allergies: meperidine (Verified Allergy, Intermediate, 06/16/18) strange feeling all over naproxen (Verified Allergy, Intermediate, itching, 06/16/18) ALEJO GRACIA MD Sep 14, 2018 14:56
== END 2018-09-14 14:40 | disposition home health service (06) | DRG 392 ==
LOC: M ED 18:04 → M ED INP 21:05 → M MS5PR 22:35
PROVIDERS: ADMIT Hospitalist; ATTEND Internal Medicine
PROC: 0DB58ZX Excision of Esophagus, Via Natural or Artificial Opening Endoscopic, Diagnostic (ICD-10-PCS; 2018-09-08)
PROC: 0D738ZZ Dilation of Lower Esophagus, Via Natural or Artificial Opening Endoscopic (ICD-10-PCS; principal; 2018-09-08 09:20)
PROC: 30233N1 Transfusion of Nonautologous Red Blood Cells into Peripheral Vein, Percutaneous Approach (ICD-10-PCS; 2018-09-12)
DX: K22.2 Esophageal obstruction (principal); N39.0 Urinary tract infection, site not specified; I50.22 Chronic systolic (congestive) heart failure; I48.2 Chronic atrial fibrillation; E87.6 Hypokalemia; D50.9 Iron deficiency anemia, unspecified; M54.2 Cervicalgia; Z79.01 Long term (current) use of anticoagulants; Z95.0 Presence of cardiac pacemaker; I11.0 Hypertensive heart disease with heart failure; E78.5 Hyperlipidemia, unspecified; Z79.899 Other long term (current) drug therapy; Z88.8 Allergy status to other drugs, medicaments and biological substances; K21.9 Gastro-esophageal reflux disease without esophagitis

== ENCOUNTER 2018-11-11 23:20 | Inpatient (IN) | payer MEDICARE ==
[~2018-11-11] VITALS: Ht 157.5 cm; Wt 84.0 kg
[~2018-11-11 23:20] MED LIST changes: +ACET-683 PO; +CALC-333 PO; +CART120C PO; +CEFD1CAP8 PO; +COMB0.2S OU; +ELIQ2.5T PO; +FERR325T18 PO; +MIRA0.5T PO; +PANT40TA3 PO; +TORS20TA2 PO; +TRAM50TA2 PO
[2018-11-11 23:30] VITALS: BP 110/57
[2018-11-12] VITALS (14 sets, daily range): BP systolic 93–125; BP diastolic 54–71; O2SAT 94
[2018-11-12] MEDS ORDERED: guaiFENesin SYRUP 200 MG/10 ML UDC PO PRN (00:45)
[2018-11-12] MEDS ORDERED: MAALOX 30 ML SUSP *UDC PO PRN (00:45)
[2018-11-12] MEDS ORDERED: LORATADINE 10 MG TAB PO ONE (00:45)
[2018-11-12] MEDS ORDERED: ACETAMINOPHEN TAB 650MG DOSE (2X325MG) PO PRN (00:45)
[2018-11-12] MEDS ORDERED: MOM 30ML SUSPENSION UDC PO PRN (00:45)
[2018-11-12 01:19] LABS: HEMATOCRIT 30.4 % (36.0-47.0); HEMOGLOBIN 9.3 g/dl (12.0-15.5)
[2018-11-12] MEDS ORDERED: COLA100C5 PO (01:56)
[2018-11-12] MEDS ORDERED: PRES10CA2 PO (01:56)
[2018-11-12] MEDS ORDERED: COEN100T PO (01:56)
[2018-11-12] MEDS ORDERED: CARD180C4 PO (01:56)
[2018-11-12] MEDS ORDERED: SERT25TA21 PO (01:56)
[2018-11-12] MEDS ORDERED: LABE10TAB PO (01:56)
[2018-11-12] MEDS ORDERED: IPRA0.00 NEB (01:56)
[2018-11-12] MEDS ORDERED: MILKSUS3 PO (01:56)
[2018-11-12] MEDS ORDERED: D3 S20002 PO (01:56)
[2018-11-12] MEDS ORDERED: VITMTA PO (01:56)
[2018-11-12] MEDS ORDERED: FLEEENE12 PR (01:56)
[2018-11-12] MEDS ORDERED: FURO40TA2 PO (01:56)
[2018-11-12] MEDS ORDERED: BISA10SU27 PR (01:59)
[2018-11-12] MEDS: IPRATROPIUM 0.5MG/ALBUTEROL 2.5MG INH SOL UD 3ML (DUONEB)(J7620) NEB SCH ×4 (02:00→19:26)
[2018-11-12] MEDS: methylPREDNISolone INJ 125 MG/2 ML VIAL (J2930) IV SCH ×3 (02:16→16:41)
[2018-11-12] MEDS ORDERED: BISACODYL 10 MG SUPP PR PRN (03:00)
--- NOTE | 2018-11-12 03:22 | HPEPDOC ---
General Date of Admission Nov 11, 2018 at 23:20 Date of Service: Nov 12, 2018 Chief Complaint The patient is a 88-year-old female admitted with a reason for visit of Sepsis. Source: Patient, Family Exam Limitations: No limitations Timing/Duration: Day(s) Severity: Moderate History of Present Illness Ms. Osei is an 88 years old woman who presented to [facility] ER last night with multiple complaints: SOb, dry cough, chest pain, lethargy, weakness, "sick" feeling and rectal bleeding for two days. She was noted to have a fever of 102.6; she was hypoxic, O2 sat 80s% in RA, and required 3L O2 by NC. BP was soft which dropped further after IV lasix. WBC 9.9, Hb 10, Lactate 2.3, Cr 1.3, troponin negative, BNP 2814, D-dime normal. PO2 [address] ABG[address] UA normal. CT chest and abd were unremarkable for any acute findings. Pt was transferred here for presumed sepsis of unclear source. She received Neb s, Solumedrol, Zosyn and Lasix in the ER. On arrival here, pt had good mental status and stable vitals, soft BP. She was noted to have bright red blood per rectum. Home Medications Scheduled Apixaban (Eliquis) 2.5 Mg Tablet, 2.5 MG PO BID, (Reported) Brimonidine Tartrate/Timolol (Combigan 0.2%-0.5% Eye Drops) 5 Ml Drops, 1 DROP OU BID, (Reported) Cholecalciferol (Vitamin D3) (Vitamin D3) 2,000 Unit Capsule, 2,000 UNIT PO DAILY, (Reported) Diltiazem Hcl (Cardizem Cd) 180 Mg Cap.er.24h, 180 MG PO DAILY, (Reported) Docusate Sodium (Colace) 100 Mg Capsule, 100 MG PO QHS, (Reported) Fentanyl (Fentanyl) 12 Mcg Patch.td72, 12 MCG TOP Q72H, (Reported) Furosemide (Furosemide) 40 Mg Tablet, 40 MG PO BID, (Reported) Ipratropium/Albuterol Sulfate (Iprat-Albut 0.5-3(2.5) mg/3 ml) 3 Ml Ampul.neb, 1 INHALATION NEB BID, (Reported) Labetalol HCl (Labetalol HCl) 100 Mg Tablet, 100 MG PO BID, (Reported) Magnesium Oxide (Magnesium) 400 Mg Capsule, 400 MG PO DAILY, (Reported) Multivitamins (Thera M Plus Tablet) 1 Each Tablet, 1 TAB PO DAILY, (Reported) Pantoprazole Sodium (Pantoprazole Sodium) 40 Mg Tablet.dr, 40 MG PO DAILY, (Reported) Potassium Chloride (Potassium Chloride) 10 Meq Tab.er.prt, 10 MEQ PO BID, (Reported) Pramipexole Di-HCl (Mirapex) 0.5 Mg Tablet, 0.5 MG PO QHS, (Reported) Sertraline HCl (Sertraline HCl) 25 Mg Tablet, 25 MG PO QHS, (Reported) Simvastatin (Zocor) 10 Mg Tablet, 10 MG PO QHS, (Reported) Ubidecarenone (Coenzyme Q10) 100 Mg Tablet, 100 MG PO DAILY, (Reported) Vit C/E/Zn/Coppr/Lutein/Zeaxan (Preservision Areds 2 Softgel) 1 Each Capsule, 1 EACH PO DAILY, (Reported) Vitamin E (Dl,Tocopheryl Acet) (Vitamin E) 400 Unit Capsule, 400 UNIT PO DAILY, (Reported) Scheduled PRN Acetaminophen (Acetaminophen) 500 Mg Tablet, 500 MG PO QID PRN for PAIN, (Reported) Bisacodyl (Bisacodyl) 10 Mg Supp.rect, 10 MG AR DAILY PRN for CONSTIPATION, (Reported) IF NO RESULTS FROM MILK OF MAGNESIA Magnesium Hydroxide (Milk of Magnesia) 400 Mg/5 Ml Oral.susp, 30 ML PO DAILY PRN for CONSTIPATION, (Reported) IF NO BM IN 48 HOURS Sodium Phosphate,Dale-Dibasic (Fleet Enema) 133 Ml Enema, 1 YANELI AR DAILY PRN for CONSTIPATION, (Reported) IF NO RESULTS FROM BISACODYL SUPPOSITORY Tramadol HCl (Tramadol HCl) 50 Mg Tablet, 50 MG PO QID PRN for PAIN, (Reported) Allergies Coded Allergies: meperidine (Verified Allergy, Intermediate, 06/16/18) strange feeling all over naproxen (Verified Allergy, Intermediate, itching, 06/16/18) Past Medical History Medical History AF, V-tach, s/p pacemaker, HTN, CHF, Depression Family History Significant Family History: No pertinent family hx Social History * Smoker: Denies Alcohol: Denies Drugs: denies A-FIB/CHADSVASC A-FIB History Current/History of A-Fib/PAF?: Yes Current PO Anticoag Therapy: No Age/Risk Factor Scoring CHADSVASC: CHADSVASC Response (Comments) Value Age Risk Factor Age >/= 75 years old 2 Gender Risk Factor Female 1 Hx of CHF Yes 1 Hx of HTN Yes 1 Hx of Stroke/TIA/or VTE No 0 Hx of Diabetes No 0 Hx of Vascular Disease No 0 Total 5 Treatment Treatment ordered: NONE Reason Anticoagulant not given: Current bleeding Review of Systems Constitutional: Reports: Chills, Fever, Malaise, Weakness, Fatigue, Lethargy Eyes: Denies: Pain, Vision change ENT: Reports: Head Aches, Sinus Congestion; Denies: Ear Pain, Dysphagia Skin: Denies: Rash, Lesions Pulmonary: Reports: Dyspnea, Cough Cardiovascular: Reports: Chest Pain, Lt Headedness Gastrointestinal: Denies: Nausea, Vomiting, Abdominal Pain, Diarrhea Genitourinary: Denies: Dysuria, Frequency Hematologic: Denies: Bruising Endocrine: Denies: Polydipsia, Polyphagia Musculoskeletal: Denies: Back Pain Neurological: Reports: Weakness; Denies: Change in speech Psych: Reports: Mood Normal; Denies: Anxiety Physical Examination General Exam: Positive: Alert, Cooperative, No Acute Distress Eye Exam: Positive: PERRLA, Conjunctiva & lids normal ENT Exam: Positive: Atraumatic, Mucous membr. moist/pink Neck Exam: Positive: Supple; Negative: JVD Chest Exam: Positive: Other (broncheal sounds) Heart Exam: Positive: Rate Normal, Irregular Rhythm Abdomen Exam: Positive: Normal bowel sounds, Soft; Negative: Tenderness Extremity Exam: Positive: Normal pulses; Negative: Edema Skin Exam: Positive: Nl turgor and temperature; Negative: Rash Neuro Exam: Positive: Normal Speech, Strength at 5/5 X4 ext, Normal Tone Psych Exam: Positive: Mental status NL, Mood NL; Negative: Anxiety Vital Signs Vital Signs Date Time Temp Pulse Resp B/P (MAP) Pulse Ox O2 Delivery O2 Flow Rate FiO2 11/11/18 23:30 98.5 74 20 110/57 (74) 94 3.0 Laboratory Data CBC/BMP Laboratory Tests 11/12/18 01:09 Microbiology Microbiology 11/12/18 Respiratory Virus Panel (PCR) ([facility]), Received Pending Assessment/Plan Acute Hypoxic Respiratory Failure due to Viral Bronchitis, no signs of sepsis - Admit to ICU - O2 by NC to keep O2 sat between 90% and 94% - Nebs, steroid,, Claritin, cough syrup. Start empirically Rocephin for now which can be discontinued if no clear signs of bacterial infection - Check respiratory panel - Supportive care Acute Rectal Bleeding in the setting of Eliquis Use - Hold Eliquis - Serial H/H; transfuse prn - IV Protonix - Consider Colonoscopy after respiratory stabilization - Clear liquid diet Continue other home meds for chronic illness; hold Lasix and Labetalol for now. Plan / VTE VTE Prophylaxis Ordered?: Yes VTE Exclusion Mechanical Proph: N/A:VTE Prophy Ordered VTE Exclusion Pharmacological: Active Bleeding Plan Diet: Continue Current Activity: Encourage Ambulation Respiratory: Wean Oxygen Diagnostics: Repeat Labs in AM EMIR MERRITT MD Nov 12, 2018 03:07
[2018-11-12] MEDS ORDERED: cefTRIAXone SOD 1 GM in D5W MINI-BAG PLUS 50 ML IV SCH (05:00)
[2018-11-12 05:27] LABS: HEMATOCRIT 31.4 % (36.0-47.0); HEMOGLOBIN 9.4 g/dl (12.0-15.5); MEAN CORPUSCULAR HEMOGLOBIN 24.9 pg (27.0-33.0); MEAN CORPUSCULAR HGB CONC 29.9 g/dl (32.0-36.5); MEAN CORPUSCULAR VOLUME 83.3 fl (80.0-96.0); PLATELET COUNT, AUTOMATED 282 10^3/uL (150-450); RED BLOOD COUNT 3.77 10^6/uL (4.00-5.40); WHITE BLOOD COUNT 10.4 10^3/uL (4.0-10.0)
[2018-11-12 05:50] LABS: ALBUMIN 2.4 GM/DL (3.2-5.2); BILIRUBIN,TOTAL 0.8 MG/DL (0.2-1.0); CALCIUM LEVEL 8.6 MG/DL (8.8-10.2); CREATININE FOR GFR 1.31 MG/DL (0.55-1.30); POTASSIUM SERUM 4.5 MEQ/L (3.5-5.1)
[2018-11-12] MEDS ORDERED: PANTOPRAZOLE 40MG INJ (PROTONIX) (C9113) IV SCH (06:00)
[2018-11-12] MEDS: MULTIVITAMINS/MINERALS THERAP 1 TAB PO SCH (09:55)
[2018-11-12] MEDS: VITAMIN D 1,000 INTERNATIONAL UNITS TABLET PO SCH (09:55)
[2018-11-12] MEDS: diltiaZEM **CD** 180 MG CAP PO SCH (09:55)
[2018-11-12] MEDS ORDERED: ONDANSETRON 4MG/2ML VIAL (J2405) IV PRN (10:15)
[2018-11-12] MEDS: MAGNESIUM OXIDE 400 MG TAB (MAG-OX) PO SCH (10:27)
[2018-11-12] MEDS: APIXABAN 2.5 MG TAB (ELIQUIS) PO SCH ×2 (10:27→20:51)
[2018-11-12 12:47] LABS: HEMATOCRIT 34.3 % (36.0-47.0); HEMOGLOBIN 10.1 g/dl (12.0-15.5)
[2018-11-12] MEDS: FUROSEMIDE 40 MG TAB PO SCH (17:58)
[2018-11-12] MEDS: SIMVASTATIN 10 MG TAB PO SCH (20:51)
[2018-11-12] MEDS: DOCUSATE SODIUM 100 MG CAP PO SCH (20:51)
[2018-11-12] MEDS: POTASSIUM CHLORIDE 10 MEQ SR TABLET PO SCH (20:51)
[2018-11-12] MEDS: LORATADINE 10 MG TAB PO SCH (20:52)
[2018-11-12] MEDS: SERTRALINE HCL 25 MG TABLET PO SCH (20:52)
[2018-11-12] MEDS: LABETALOL 100 MG TAB PO SCH (20:52)
[2018-11-12] MEDS: PRAMIPEXOLE 0.25 MG TAB PO SCH (20:52)
[2018-11-13] MEDS: methylPREDNISolone INJ 125 MG/2 ML VIAL (J2930) IV SCH ×3 (00:45→16:19)
[2018-11-13 06:00] VITALS: BP 118/69
[2018-11-13 06:11] LABS: BASO % 0.1 % (0.0-1.0); HEMATOCRIT 30.8 % (36.0-47.0); HEMOGLOBIN 9.1 g/dl (12.0-15.5); LYMPH # 0.6 10^3/uL (1.5-5.0); LYMPH % 4.1 % (24.0-44.0); MEAN CORPUSCULAR HEMOGLOBIN 24.4 pg (27.0-33.0); MEAN CORPUSCULAR HGB CONC 29.5 g/dl (32.0-36.5); MEAN CORPUSCULAR VOLUME 82.6 fl (80.0-96.0); MONO # 0.4 10^3/uL (0.0-0.8); MONO % 2.4 % (0.0-5.0); NEUTROPHILS # 13.9 10^3/uL (1.5-8.5); NEUTROPHILS % 92.5 % (36.0-66.0); PLATELET COUNT, AUTOMATED 326 10^3/uL (150-450); RED BLOOD COUNT 3.73 10^6/uL (4.00-5.40); WHITE BLOOD COUNT 15.1 10^3/uL (4.0-10.0)
[2018-11-13 06:43] LABS: ALBUMIN 2.3 GM/DL (3.2-5.2); BILIRUBIN,TOTAL 0.4 MG/DL (0.2-1.0); CALCIUM LEVEL 8.5 MG/DL (8.8-10.2); CREATININE FOR GFR 1.17 MG/DL (0.55-1.30); GLOMERULAR FILTRATION RATE 46.7 (>32); POTASSIUM SERUM 4.2 MEQ/L (3.5-5.1); TOTAL PROTEIN 5.7 GM/DL (6.4-8.2)
[2018-11-13] MEDS: IPRATROPIUM 0.5MG/ALBUTEROL 2.5MG INH SOL UD 3ML (DUONEB)(J7620) NEB SCH ×4 (07:23→19:37)
[2018-11-13] MEDS: VITAMIN D 1,000 INTERNATIONAL UNITS TABLET PO SCH (08:07)
[2018-11-13] MEDS: MAGNESIUM OXIDE 400 MG TAB (MAG-OX) PO SCH (08:07)
[2018-11-13] MEDS: CO-ENZYME Q10 50 MG CAP PO SCH (08:07)
[2018-11-13] MEDS: MULTIVITAMINS/MINERALS THERAP 1 TAB PO SCH (08:07)
[2018-11-13] MEDS: POTASSIUM CHLORIDE 10 MEQ SR TABLET PO SCH ×2 (08:08→20:03)
[2018-11-13] MEDS: PANTOPRAZOLE 40MG TAB (PROTONIX) PO SCH (08:08)
[2018-11-13] MEDS: APIXABAN 2.5 MG TAB (ELIQUIS) PO SCH ×2 (08:08→20:02)
[2018-11-13] MEDS: FUROSEMIDE 40 MG TAB PO SCH ×2 (08:08→16:19)
[2018-11-13] MEDS: LABETALOL 100 MG TAB PO SCH ×2 (08:11→20:02)
[2018-11-13] MEDS: diltiaZEM **CD** 180 MG CAP PO SCH (08:11)
[2018-11-13] MEDS: fentaNYL 12 MCG/HR PATCH TOP SCH (08:20)
[2018-11-13] MEDS ORDERED: FENTANYL REMOVAL DOCUMENTATION MISC XX SCH (09:00)
--- NOTE | 2018-11-13 10:43 | IPNPDOC ---
Subjective Date Seen The patient was seen on 11/13/18. Subjective Chief Complaint/HPI Patient is feeling better, in no apparent distress. Wishes to get out of bed General: Denies: ROS Unobtainable, Chills, Night Sweats, Fatigue, Malaise, Normal Appetite, Other Symptoms ENT: Denies: Head Aches, Ear Pain, Dysphagia, Sinus Congestion, Post Nasal Drip, Sore Throat, Epistaxis, Other Symptoms Skin: Denies: Rash, Lesions, Jaundice, Bruising, Itching, Dry, Breakdown, Nail Changes, Other Pulmonary: Denies: Dyspnea, Cough, Pleuritic Chest Pain, Other Symptoms Cardiovascular: Denies: Chest Pain, Palpitations, Orthopnea, Paroxysmal Noc. Dyspnea, Edema, Lt Headedness, Other Symptoms Gastrointestinal: Denies: Nausea, Vomiting, Abdominal Pain, Diarrhea, Constipation, Melena, Hematochezia, Other Symptoms Musculoskeletal: Denies: Neck Pain, Back Pain, Shoulder Pain, Arm Pain, Hand Pain, Leg Pain, Foot Pain, Joint Pain, Muscle Pain, Spasms, Other Symptoms Neurological: Denies: Weakness, Numbness, Incoordination, Change in speech, Confusion, Seizures, Other Symptoms Objective Physical Examination ENT Exam: Positive: Atraumatic, Mucous membr. moist/pink Neck Exam: Positive: Supple Chest Exam: Positive: Other (broncheal sounds) Heart Exam: Positive: Rate Normal, Irregular Rhythm Abdomen Exam: Positive: Normal bowel sounds, Soft Extremity Exam: Positive: Normal pulses Skin Exam: Positive: Nl turgor and temperature Neuro Exam: Positive: Normal Speech, Strength at 5/5 X4 ext, Normal Tone Psych Exam: Positive: Mental status NL, Mood NL Assessment /Plan Plan/VTE VTE Prophylaxis Ordered?: Yes VTE Exclusion Mechanical Proph: N/A:VTE Prophy Ordered VTE Exclusion Pharmacological: Active Bleeding Plan Diet: Continue Current Activity: Encourage Ambulation Respiratory: Wean Oxygen Diagnostics: Repeat Labs in AM VS, I&O, 24H, Anibal Vital Signs/I&O Vital Signs Date Time Temp Pulse Resp B/P (MAP) Pulse Ox O2 Delivery O2 Flow Rate FiO2 11/13/18 08:50 16 11/13/18 08:11 112 106/70 11/13/18 06:00 96.9 92 11/12/18 18:31 1.0 11/12/18 14:16 Nasal Cannula I&O- Last 24 Hours up to 6 AM 11/13/18 06:00 Intake Total 1630 ml Output Total 755 ml Balance 875 ml Laboratory Data 24H LABS Laboratory Tests 2 11/13/18 05:04: Immature Granulocyte % (Auto) 0.9, White Blood Count 15.1H, Red Blood Count 3.73L, Hemoglobin 9.1L, Hematocrit 30.8L, Mean Corpuscular Volume 82.6, Mean Corpuscular Hemoglobin 24.4L, Mean Corpuscular Hemoglobin Concent 29.5L, Red Cell Distribution Width 20.6H, Platelet Count 326, Neutrophils (%) (Auto) 92.5H, Lymphocytes (%) (Auto) 4.1L, Monocytes (%) (Auto) 2.4, Eosinophils (%) (Auto) 0.0, Basophils (%) (Auto) 0.1, Neutrophils # (Auto) 13.9H, Lymphocytes # (Auto) 0.6L, Monocytes # (Auto) 0.4, Eosinophils # (Auto) 0.0, Basophils # (Auto) 0.0, Nucleated Red Blood Cells % (auto) 0.0, Anion Gap 6L, Glomerular Filtration Rate 46.7, Blood Urea Nitrogen 35#H, Creatinine 1.17, Sodium Level 140, Potassium Level 4.2, Chloride Level 105, Carbon Dioxide Level 29, Calcium Level 8.5L, Aspartate Amino Transf (AST/SGOT) 6L, Alanine Aminotransferase (ALT/SGPT) 12, Alkaline Phosphatase 126H, Total Bilirubin 0.4, Total Protein 5.7L, Albumin 2.3L, Albumin/Globulin Ratio 0.68L CBC/BMP Laboratory Tests 11/12/18 12:23 11/13/18 05:04 Red Blood Count 3.73 L, Mean Corpuscular Volume 82.6, Mean Corpuscular Hemoglobin 24.4 L, Mean Corpuscular Hemoglobin Concent 29.5 L, Red Cell Distribution Width 20.6 H, Neutrophils (%) (Auto) 92.5 H, Lymphocytes (%) (Auto) 4.1 L, Monocytes (%) (Auto) 2.4, Eosinophils (%) (Auto) 0.0, Basophils (%) (Auto) 0.1, Neutrophils # (Auto) 13.9 H, Lymphocytes # (Auto) 0.6 L, Monocytes # (Auto) 0.4, Eosinophils # (Auto) 0.0, Basophils # (Auto) 0.0, Calcium Level 8.5 L, Aspartate Amino Transf (AST/SGOT) 6 L, Alanine Aminotransferase (ALT/SGPT) 12, Alkaline Phosphatase 126 H, Total Bilirubin 0.4, Total Protein 5.7 L, Albumin 2.3 L Microbiology Microbiology 11/12/18 Respiratory Virus Panel (PCR) ([facility]) - Final, Complete Human Rhinovirus/Enterovirus ZARIA PANDA MD Nov 13, 2018 10:43
--- NOTE | 2018-11-13 10:48 | IPNPDOC ---
Subjective Date Seen The patient was seen on 11/13/18. Subjective Chief Complaint/HPI Patient seems comfortable in no apparent distress. Has some cough but no shortness of breath General: Denies: ROS Unobtainable, Chills, Night Sweats, Fatigue, Malaise, Normal Appetite, Other Symptoms Constitutional: Denies: Chills, Fever, Malaise, Night Sweats, Weakness, Fatigue, Weight Loss, Lethargy, Other Eyes: Denies: Pain, Vision change, Conjunctivae inflammation, Eyelid inflammation, Redness, Other Pulmonary: Reports: Cough; Denies: Dyspnea, Pleuritic Chest Pain, Other Symptoms Cardiovascular: Denies: Chest Pain, Palpitations, Orthopnea, Paroxysmal Noc. Dyspnea, Edema, Lt Headedness, Other Symptoms Gastrointestinal: Denies: Nausea, Vomiting, Abdominal Pain, Diarrhea, Constipation, Melena, Hematochezia, Other Symptoms Genitourinary: Denies: Dysuria, Frequency, Incontinence, Hematuria, Retention, Other Symptoms Musculoskeletal: Denies: Neck Pain, Back Pain, Shoulder Pain, Arm Pain, Hand Pain, Leg Pain, Foot Pain, Joint Pain, Muscle Pain, Spasms, Other Symptoms Neurological: Denies: Weakness, Numbness, Incoordination, Change in speech, Confusion, Seizures, Other Symptoms Objective Physical Examination ENT Exam: Positive: Atraumatic, Mucous membr. moist/pink Neck Exam: Positive: Supple Chest Exam: Positive: Normal air movement, Other (broncheal sounds) Heart Exam: Positive: Rate Normal, Irregular Rhythm Abdomen Exam: Positive: Normal bowel sounds, Soft Extremity Exam: Positive: Normal pulses Skin Exam: Positive: Nl turgor and temperature Neuro Exam: Positive: Normal Speech, Strength at 5/5 X4 ext, Normal Tone Psych Exam: Positive: Mental status NL, Mood NL Assessment /Plan Problems (1) Respiratory failure with hypoxia Status: Acute Problem Text: Acute hypoxic respiratory failure secondary to a cold virus infection Oxygen support Pro calcitonin is negative, so DC IV antibiotics Supporting care Repeat chest x-ray Continue home medications Physical therapy consult Possible discharge in a.m. (2) Rectal bleeding Problem Text: Questionable history of rectal bleed Patient had no evidence of rectal bleed while in the hospital Will restart eliquis And follow-up clinically Plan/VTE VTE Prophylaxis Ordered?: Yes VTE Exclusion Mechanical Proph: N/A:VTE Prophy Ordered VTE Exclusion Pharmacological: Active Bleeding Plan Diet: Continue Current Activity: Encourage Ambulation Respiratory: Wean Oxygen Diagnostics: Repeat Labs in AM VS, I&O, 24H, [place]ibal Vital Signs/I&O Vital Signs Date Time Temp Pulse Resp B/P (MAP) Pulse Ox O2 Delivery O2 Flow Rate FiO2 11/13/18 08:50 16 11/13/18 08:11 112 106/70 11/13/18 06:00 96.9 92 11/12/18 18:31 1.0 11/12/18 14:16 Nasal Cannula I&O- Last 24 Hours up to 6 AM 11/13/18 06:00 Intake Total 1630 ml Output Total 755 ml Balance 875 ml Laboratory Data 24H LABS Laboratory Tests 2 11/13/18 05:04: Immature Granulocyte % (Auto) 0.9, White Blood Count 15.1H, Red Blood Count 3.73L, Hemoglobin 9.1L, Hematocrit 30.8L, Mean Corpuscular Volume 82.6, Mean Corpuscular Hemoglobin 24.4L, Mean Corpuscular Hemoglobin Concent 29.5L, Red Cell Distribution Width 20.6H, Platelet Count 326, Neutrophils (%) (Auto) 92.5H, Lymphocytes (%) (Auto) 4.1L, Monocytes (%) (Auto) 2.4, Eosinophils (%) (Auto) 0.0, Basophils (%) (Auto) 0.1, Neutrophils # (Auto) 13.9H, Lymphocytes # (Auto) 0.6L, Monocytes # (Auto) 0.4, Eosinophils # (Auto) 0.0, Basophils # (Auto) 0.0, Nucleated Red Blood Cells % (auto) 0.0, Anion Gap 6L, Glomerular Filtration Rate 46.7, Blood Urea Nitrogen 35#H, Creatinine 1.17, Sodium Level 140, Potassium Level 4.2, Chloride Level 105, Carbon Dioxide Level 29, Calcium Level 8.5L, Aspartate Amino Transf (AST/SGOT) 6L, Alanine Aminotransferase (ALT/SGPT) 12, Alkaline Phosphatase 126H, Total Bilirubin 0.4, Total Protein 5.7L, Albumin 2.3L , Albumin/Globulin Ratio 0.68L CBC/BMP Laboratory Tests 11/12/18 12:23 11/13/18 05:04 Red Blood Count 3.73 L, Mean Corpuscular Volume 82.6, Mean Corpuscular Hemoglobin 24.4 L, Mean Corpuscular Hemoglobin Concent 29.5 L, Red Cell Distribution Width 20.6 H, Neutrophils (%) (Auto) 92.5 H, Lymphocytes (%) (Auto) 4.1 L, Monocytes (%) (Auto) 2.4, Eosinophils (%) (Auto) 0.0, Basophils (%) (Auto) 0.1, Neutrophils # (Auto) 13.9 H, Lymphocytes # (Auto) 0.6 L, Monocytes # (Auto) 0.4, Eosinophils # (Auto) 0.0, Basophils # (Auto) 0.0, Calcium Level 8.5 L, Aspartate Amino Transf (AST/SGOT) 6 L, Alanine Aminotransferase (ALT/SGPT) 12, Alkaline Phosphatase 126 H, Total Bilirubin 0.4, Total Protein 5.7 L, Albumin 2.3 L Microbiology Microbiology 11/12/18 Respiratory Virus Panel (PCR) ([facility]) - Final, Complete Human Rhinovirus/Enterovirus ZARIA PANDA MD Nov 13, 2018 10:48
--- NOTE | 2018-11-13 12:26 | REP ---
PORTABLE CHEST: AP portable view of the chest is performed and compared to prior studies, most recent of which is 09/09/2018. The heart does not appear to be significantly enlarged. There is calcification and tortuosity of the thoracic aorta. The mediastinal silhouette is unchanged. There is poor elevation with crowding of the lung markings and mild bibasilar atelectatic change. There is a small patch of atelectasis or infiltrate laterally in the right base. 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 IMPRESSION: Small patch of atelectasis or infiltrate lateral right lung base. Electronically Signed by Cliff Roach MD 11/13/2018 06:47 P
[2018-11-13 14:00] VITALS: BP 115/73
[2018-11-13] MEDS: PRAMIPEXOLE 0.25 MG TAB PO SCH (20:01)
[2018-11-13] MEDS: LORATADINE 10 MG TAB PO SCH (20:02)
[2018-11-13] MEDS: SIMVASTATIN 10 MG TAB PO SCH (20:02)
[2018-11-13] MEDS: SERTRALINE HCL 25 MG TABLET PO SCH (20:02)
[2018-11-13] MEDS: DOCUSATE SODIUM 100 MG CAP PO SCH (20:03)
[2018-11-13] MEDS ORDERED: APIXABAN 2.5 MG TAB (ELIQUIS) PO SCH (21:00)
[2018-11-13 22:00] VITALS: BP 113/70
[2018-11-14] MEDS: IPRATROPIUM 0.5MG/ALBUTEROL 2.5MG INH SOL UD 3ML (DUONEB)(J7620) NEB SCH ×4 (00:45→19:09)
[2018-11-14] MEDS: methylPREDNISolone INJ 125 MG/2 ML VIAL (J2930) IV SCH ×3 (00:57→15:50)
[2018-11-14 06:00] VITALS: BP 115/69
[2018-11-14 06:21] LABS: BASO % 0.1 % (0.0-1.0); HEMATOCRIT 31.8 % (36.0-47.0); HEMOGLOBIN 9.4 g/dl (12.0-15.5); LYMPH # 0.6 10^3/uL (1.5-5.0); LYMPH % 3.8 % (24.0-44.0); MEAN CORPUSCULAR HEMOGLOBIN 24.2 pg (27.0-33.0); MEAN CORPUSCULAR HGB CONC 29.6 g/dl (32.0-36.5); MONO # 0.2 10^3/uL (0.0-0.8); MONO % 1.2 % (0.0-5.0); NEUTROPHILS # 14.6 10^3/uL (1.5-8.5); NEUTROPHILS % 93.7 % (36.0-66.0); PLATELET COUNT, AUTOMATED 361 10^3/uL (150-450); RED BLOOD COUNT 3.88 10^6/uL (4.00-5.40); WHITE BLOOD COUNT 15.6 10^3/uL (4.0-10.0)
[2018-11-14 06:49] LABS: ALBUMIN 2.5 GM/DL (3.2-5.2); BILIRUBIN,TOTAL 0.5 MG/DL (0.2-1.0); CALCIUM LEVEL 8.5 MG/DL (8.8-10.2); CREATININE FOR GFR 1.08 MG/DL (0.55-1.30); GLOMERULAR FILTRATION RATE 51.2 (>32); POTASSIUM SERUM 4.1 MEQ/L (3.5-5.1); TOTAL PROTEIN 5.8 GM/DL (6.4-8.2)
[2018-11-14] MEDS: cefTRIAXone SOD 1 GM in D5W MINI-BAG PLUS 50 ML IV SCH (08:47)
[2018-11-14] MEDS: VITAMIN D 1,000 INTERNATIONAL UNITS TABLET PO SCH (08:48)
[2018-11-14] MEDS: CO-ENZYME Q10 50 MG CAP PO SCH (08:48)
[2018-11-14] MEDS: POTASSIUM CHLORIDE 10 MEQ SR TABLET PO SCH ×2 (08:49→20:19)
[2018-11-14] MEDS: PANTOPRAZOLE 40MG TAB (PROTONIX) PO SCH (08:49)
[2018-11-14] MEDS: FUROSEMIDE 40 MG TAB PO SCH ×2 (08:49→15:50)
[2018-11-14] MEDS: MULTIVITAMINS/MINERALS THERAP 1 TAB PO SCH (08:49)
[2018-11-14] MEDS: diltiaZEM **CD** 180 MG CAP PO SCH (08:50)
[2018-11-14] MEDS: LABETALOL 100 MG TAB PO SCH ×2 (08:52→20:20)
[2018-11-14] MEDS: APIXABAN 2.5 MG TAB (ELIQUIS) PO SCH ×2 (08:52→20:18)
[2018-11-14] MEDS: AZITHROMYCIN INJ 500 MG, VIAL MATE ADAPTER 1 EACH in D5W 250 ML IV SCH (10:21)
[2018-11-14] MEDS: MAGNESIUM OXIDE 400 MG TAB (MAG-OX) PO SCH (10:24)
--- NOTE | 2018-11-14 10:57 | IPNPDOC ---
Subjective Date Seen The patient was seen on 11/14/18. Subjective Chief Complaint/HPI Patient is comfortable in no distress, tolerating her feeding very well General: Denies: ROS Unobtainable, Chills, Night Sweats, Fatigue, Malaise, Normal Appetite, Other Symptoms Constitutional: Denies: Chills, Fever, Malaise, Night Sweats, Weakness, Fatigue, Weight Loss, Lethargy, Other Pulmonary: Denies: Dyspnea, Cough, Pleuritic Chest Pain, Other Symptoms Cardiovascular: Denies: Chest Pain, Palpitations, Orthopnea, Paroxysmal Noc. Dyspnea, Edema, Lt Headedness, Other Symptoms Gastrointestinal: Denies: Nausea, Vomiting, Abdominal Pain, Diarrhea, Constipation, Melena, Hematochezia, Other Symptoms Genitourinary: Denies: Dysuria, Frequency, Incontinence, Hematuria, Retention, Other Symptoms Hematologic: Denies: Bruising, Bleeding Excessively, Petecchia, Purpura, Enlarged Lymph Nodes, Other Hematologic Musculoskeletal: Denies: Neck Pain, Back Pain, Shoulder Pain, Arm Pain, Hand Pain, Leg Pain, Foot Pain, Joint Pain, Muscle Pain, Spasms, Other Symptoms Neurological: Denies: Weakness, Numbness, Incoordination, Change in speech, Confusion, Seizures, Other Symptoms Objective Physical Examination ENT Exam: Positive: Atraumatic, Mucous membr. moist/pink Neck Exam: Positive: Supple Chest Exam: Positive: Other (. Scattered rhonchi, right lower lung) Heart Exam: Positive: Rate Normal, Irregular Rhythm Abdomen Exam: Positive: Normal bowel sounds, Soft Extremity Exam: Positive: Normal pulses Skin Exam: Positive: Nl turgor and temperature Neuro Exam: Positive: Normal Speech, Strength at 5/5 X4 ext, Normal Tone Assessment /Plan Problems (1) Respiratory failure with hypoxia Status: Acute Problem Text: Acute hypoxic respiratory failure secondary to rhinovirus infection Oxygen support Supporting care Continue home medications Physical therapy in progress (2) Rectal bleeding Problem Text: Questionable history of rectal bleed Patient had no evidence of rectal bleed while in the hospital Will restart eliquis H&H is stable. 9.4 and 31.8 We will continue monitoring CBC (3) Pneumonia Status: Acute Problem Text: O the right lung infiltrate Increased WBC count 15.6 Will start IV Rocephin and Zithromax for community-acquired pneumonia Repeat labs in a.m. Patient's daughter was called and management was discussed with her and she agrees with the plan Plan/VTE VTE Prophylaxis Ordered?: Yes VTE Exclusion Mechanical Proph: N/A:VTE Prophy Ordered VTE Exclusion Pharmacological: Active Bleeding Plan Diet: Continue Current Activity: Encourage Ambulation Respiratory: Wean Oxygen Diagnostics: Repeat Labs in AM VS, I&O, 24H, [place] Vital Signs/I&O Vital Signs Date Time Temp Pulse Resp B/P (MAP) Pulse Ox O2 Delivery O2 Flow Rate FiO2 11/14/18 08:52 83 120/77 11/14/18 07:08 93 11/14/18 06:00 98.0 17 11/13/18 09:00 1.0 11/12/18 14:16 Nasal Cannula I&O- Last 24 Hours up to 6 AM 11/14/18 06:00 Intake Total 1075 ml Output Total 1125 ml Balance -50 ml Laboratory Data 24H LABS Laboratory Tests 2 11/14/18 05:16: Immature Granulocyte % (Auto) 1.2, White Blood Count 15.6H, Red Blood Count 3.88L, Hemoglobin 9.4L, Hematocrit 31.8L, Mean Corpuscular Volume 82.0, Mean Corpuscular Hemoglobin 24.2L, Mean Corpuscular Hemoglobin Concent 29.6L, Red Ce ll Distribution Width 20.3H, Platelet Count 361, Neutrophils (%) (Auto) 93.7H, Lymphocytes (%) (Auto) 3.8L, Monocytes (%) (Auto) 1.2, Eosinophils (%) (Auto) 0.0, Basophils (%) (Auto) 0.1, Neutrophils # (Auto) 14.6H, Lymphocytes # (Auto) 0.6L, Monocytes # (Auto) 0.2, Eosinophils # (Auto) 0.0, Basophils # (Auto) 0.0, Nucleated Red Blood Cells % (auto) 0.1H, Anion Gap 6L, Glomerular Filtration Rate 51.2, Blood Urea Nitrogen 40H, Creatinine 1.08, Sodium Level 140, Potassium Level 4.1, Chloride Level 104, Carbon Dioxide Level 30, Calcium Level 8.5L, Aspartate Amino Transf (AST/SGOT) 9, Alanine Aminotransferase (ALT/SGPT) 15, Alkaline Phosphatase 116, Total Bilirubin 0.5, Total Protein 5.8L, Albumin 2.5L, Albumin/Globulin Ratio 0.76L CBC/BMP Laboratory Tests 11/14/18 05:16 Red Blood Count 3.88 L, Mean Corpuscular Volume 82.0, Mean Corpuscular Hemoglobin 24.2 L, Mean Corpuscular Hemoglobin Concent 29.6 L, Red Cell Distribution Width 20.3 H, Neutrophils (%) (Auto) 93.7 H, Lymphocytes (%) (Auto) 3.8 L, Monocytes (%) (Auto) 1.2, Eosinophils (%) (Auto) 0.0, Basophils (%) ( Auto) 0.1, Neutrophils # (Auto) 14.6 H, Lymphocytes # (Auto) 0.6 L, Monocytes # (Auto) 0.2, Eosinophils # (Auto) 0.0, Basophils # (Auto) 0.0, Calcium Level 8.5 L, Aspartate Amino Transf (AST/SGOT) 9, Alanine Aminotransferase (ALT/SGPT) 15, Alkaline Phosphatase 116, Total Bilirubin 0.5, Total Protein 5.8 L, Albumin 2.5 L Microbiology Microbiology 11/12/18 Respiratory Virus Panel (PCR) ([facility]) - Final, Complete Human Rhinovirus/Enterovirus ZARIA PANDA MD Nov 14, 2018 10:57
[2018-11-14 14:00] VITALS: BP 125/81
[2018-11-14] MEDS: traMADol 50 MG TAB PO PRN (14:35)
[2018-11-14] MEDS: SIMVASTATIN 10 MG TAB PO SCH (20:18)
[2018-11-14] MEDS: DOCUSATE SODIUM 100 MG CAP PO SCH (20:18)
[2018-11-14] MEDS: SERTRALINE HCL 25 MG TABLET PO SCH (20:18)
[2018-11-14] MEDS: LORATADINE 10 MG TAB PO SCH (20:18)
[2018-11-14] MEDS: PRAMIPEXOLE 0.25 MG TAB PO SCH (20:19)
[2018-11-14 22:00] VITALS: BP 133/82
[2018-11-15] MEDS: methylPREDNISolone INJ 125 MG/2 ML VIAL (J2930) IV SCH ×2 (00:26→08:24)
[2018-11-15] MEDS: IPRATROPIUM 0.5MG/ALBUTEROL 2.5MG INH SOL UD 3ML (DUONEB)(J7620) NEB SCH ×4 (02:00→19:58)
[2018-11-15 06:00] VITALS: BP 118/68
[2018-11-15 06:17] LABS: BASO % 0.1 % (0.0-1.0); HEMATOCRIT 32.2 % (36.0-47.0); HEMOGLOBIN 9.6 g/dl (12.0-15.5); LYMPH # 0.6 10^3/uL (1.5-5.0); LYMPH % 4.7 % (24.0-44.0); MEAN CORPUSCULAR HEMOGLOBIN 24.1 pg (27.0-33.0); MEAN CORPUSCULAR HGB CONC 29.8 g/dl (32.0-36.5); MEAN CORPUSCULAR VOLUME 80.9 fl (80.0-96.0); MONO # 0.2 10^3/uL (0.0-0.8); MONO % 1.4 % (0.0-5.0); NEUTROPHILS # 11.1 10^3/uL (1.5-8.5); NEUTROPHILS % 92.2 % (36.0-66.0); PLATELET COUNT, AUTOMATED 357 10^3/uL (150-450); RED BLOOD COUNT 3.98 10^6/uL (4.00-5.40)
[2018-11-15] MEDS: traMADol 50 MG TAB PO PRN (06:39)
[2018-11-15 06:41] LABS: ALBUMIN 2.5 GM/DL (3.2-5.2); BILIRUBIN,TOTAL 0.3 MG/DL (0.2-1.0); CALCIUM LEVEL 8.5 MG/DL (8.8-10.2); CREATININE FOR GFR 1.17 MG/DL (0.55-1.30); GLOMERULAR FILTRATION RATE 46.7 (>32); POTASSIUM SERUM 4.2 MEQ/L (3.5-5.1); TOTAL PROTEIN 5.8 GM/DL (6.4-8.2)
[2018-11-15] MEDS: cefTRIAXone SOD 1 GM in D5W MINI-BAG PLUS 50 ML IV SCH (08:24)
[2018-11-15] MEDS: VITAMIN D 1,000 INTERNATIONAL UNITS TABLET PO SCH (08:24)
[2018-11-15] MEDS: LABETALOL 100 MG TAB PO SCH ×2 (08:25→21:00)
[2018-11-15] MEDS: POTASSIUM CHLORIDE 10 MEQ SR TABLET PO SCH ×2 (08:25→22:04)
[2018-11-15] MEDS: CO-ENZYME Q10 50 MG CAP PO SCH (08:25)
[2018-11-15] MEDS: PANTOPRAZOLE 40MG TAB (PROTONIX) PO SCH (08:25)
[2018-11-15] MEDS: APIXABAN 2.5 MG TAB (ELIQUIS) PO SCH ×2 (08:26→22:04)
[2018-11-15] MEDS: MAGNESIUM OXIDE 400 MG TAB (MAG-OX) PO SCH (08:26)
[2018-11-15] MEDS: MULTIVITAMINS/MINERALS THERAP 1 TAB PO SCH (08:26)
[2018-11-15] MEDS: diltiaZEM **CD** 180 MG CAP PO SCH (08:26)
[2018-11-15] MEDS: FUROSEMIDE 40 MG TAB PO SCH ×2 (08:27→14:37)
[2018-11-15] MEDS: AZITHROMYCIN INJ 500 MG, VIAL MATE ADAPTER 1 EACH in D5W 250 ML IV SCH (09:50)
--- NOTE | 2018-11-15 10:49 | IPNPDOC ---
Subjective Date Seen The patient was seen on 11/15/18. Subjective Chief Complaint/HPI Patient is feeling better. Offers no new complaints, just feeling tired General: Denies: ROS Unobtainable, Chills, Night Sweats, Fatigue, Malaise, Normal Appetite, Other Symptoms Constitutional: Denies: Chills, Fever, Malaise, Night Sweats, Weakness, Fatigue, Weight Loss, Lethargy, Other Skin: Denies: Rash, Lesions, Jaundice, Bruising, Itching, Dry, Breakdown, Nail Changes, Other Pulmonary: Denies: Dyspnea, Cough, Pleuritic Chest Pain, Other Symptoms Cardiovascular: Denies: Chest Pain, Palpitations, Orthopnea, Paroxysmal Noc. Dyspnea, Edema, Lt Headedness, Other Symptoms Gastrointestinal: Denies: Nausea, Vomiting, Abdominal Pain, Diarrhea, Constipation, Melena, Hematochezia, Other Symptoms Musculoskeletal: Denies: Neck Pain, Back Pain, Shoulder Pain, Arm Pain, Hand Pain, Leg Pain, Foot Pain, Joint Pain, Muscle Pain, Spasms, Other Symptoms Neurological: Denies: Weakness, Numbness, Incoordination, Change in speech, Confusion, Seizures, Other Symptoms Objective Physical Examination ENT Exam: Positive: Atraumatic, Mucous membr. moist/pink Neck Exam: Positive: Supple Chest Exam: Positive: Other (. Scattered rhonchi, right lower lung) Heart Exam: Positive: Rate Normal, Irregular Rhythm Abdomen Exam: Positive: Normal bowel sounds, Soft Extremity Exam: Positive: Normal pulses Skin Exam: Positive: Nl turgor and temperature Neuro Exam: Positive: Normal Speech, Strength at 5/5 X4 ext, Normal Tone Assessment /Plan Problems (1) Respiratory failure with hypoxia Status: Acute Problem Text: Acute hypoxic respiratory failure secondary to rhinovirus infection Oxygen support Supporting care DC Solu-Medrol. Start prednisone 30 mg by mouth daily Continue neb treatments Continue home medications Physical therapy in progress (2) Rectal bleeding Problem Text: Questionable history of rectal bleed Patient had no evidence of rectal bleed while in the hospital Will restart eliquis H&H today is 9.6 and 32.2 We will continue monitoring CBC (3) Pneumonia Status: Acute Problem Text: Right lower lobe infiltrate on chest x-ray WBC count is decreasing is 12,000 today Continue Rocephin and Zithromax Patient's daughter was called and management was discussed with her and she agrees with the plan Possible DC in a.m. Plan/VTE VTE Prophylaxis Ordered?: Yes VTE Exclusion Mechanical Proph: N/A:VTE Prophy Ordered VTE Exclusion Pharmacological: Active Bleeding Plan Diet: Continue Current Activity: Encourage Ambulation Respiratory: Wean Oxygen Diagnostics: Repeat Labs in AM VS, I&O, 24H, Anibal Vital Signs/I&O Vital Signs Date Time Temp Pulse Resp B/P (MAP) Pulse Ox O2 Delivery O2 Flow Rate FiO2 11/15/18 08:26 86 133/76 11/15/18 07:09 16 11/15/18 06:00 97.2 93 11/13/18 09:00 1.0 11/12/18 14:16 Nasal Cannula I&O- Last 24 Hours up to 6 AM 11/15/18 06:00 Intake Total 1730 ml Output Total 1700 ml Balance 30 ml Laboratory Data 24H LABS Laboratory Tests 2 11/15/18 05:21: Immature Granulocyte % (Auto) 1.6, White Blood Count 12.0H, Red Blood Count 3.98L, Hemoglobin 9.6L, Hematocrit 32.2L, Mean Corpuscular Volume 80.9, Mean Corpuscular Hemoglobin 24.1L, Mean Corpuscular Hemoglobin Concent 29.8L, Red Cell Distribution Width 20.1H, Platelet Count 357, Neutrophils (%) (Auto) 92.2H, Lymphocytes (%) (Auto) 4.7L, Monocytes (%) (Auto) 1.4, Eosinophils (%) (Auto) 0.0, Basophils (%) (Auto) 0.1, Neutrophils # (Auto) 11.1H, Lymphocytes # (Auto) 0.6L, Monocytes # (Auto) 0.2, Eosinophils # (Auto) 0.0, Basophils # (Auto) 0.0, Nucleated Red Blood Cells % (auto) 0.0, Anion Gap 9, Glomerular Filtration Rate 46.7, Blood Urea Nitrogen 43H, Creatinine 1.17, Sodium Level 142, Potassium Level 4.2, Chloride Level 105, Carbon Dioxide Level 28, Calcium Level 8.5L, Aspartate Amino Transf (AST/SGOT) 8, Alanine Aminotransferase (ALT/SGPT) 17, Alkaline Phosphatase 120H, Total Bilirubin 0.3, Total Protein 5.8L, Albumin 2.5L, Albumin/Globulin Ratio 0.76L CBC/BMP Laboratory Tests 11/15/18 05:21 Red Blood Count 3.98 L, Mean Corpuscular Volume 80.9, Mean Corpuscular Hemoglobin 24.1 L, Mean Corpuscular Hemoglobin Concent 29.8 L, Red Cell Distribution Width 20.1 H, Neutrophils (%) (Auto) 92.2 H, Lymphocytes (%) (Auto) 4.7 L, Monocytes (%) (Auto) 1.4, Eosinophils (%) (Auto) 0.0, Basophils (%) (Auto) 0.1, Neutrophils # (Auto) 11.1 H, Lymphocytes # (Auto) 0.6 L, Monocytes # (Auto) 0.2, Eosinophils # (Auto) 0.0, Basophils # (Auto) 0.0, Calcium Level 8.5 L, Aspartate Amino Transf (AST/SGOT) 8, Alanine Aminotransferase (ALT/SGPT) 17, Alkaline Phosphatase 120 H, Total Bilirubin 0.3, Total Protein 5.8 L, Albumin 2.5 L Microbiology Microbiology 11/12/18 Respiratory Virus Panel (PCR) ([facility]) - Final, Complete Human Rhinovirus/Enterovirus ZARIA PANDA MD Nov 15, 2018 10:49
[2018-11-15] MEDS: predniSONE 10 MG TAB PO SCH (11:47)
[2018-11-15 14:00] VITALS: BP 113/65
[2018-11-15] MEDS: PRAMIPEXOLE 0.25 MG TAB PO SCH (21:00)
[2018-11-15] MEDS ORDERED: ANUSOL HC CREAM 30GM TOP PRN (21:00)
[2018-11-15 22:00] VITALS: BP 114/73
[2018-11-15] MEDS: DOCUSATE SODIUM 100 MG CAP PO SCH (22:03)
[2018-11-15] MEDS: SIMVASTATIN 10 MG TAB PO SCH (22:04)
[2018-11-15] MEDS: LORATADINE 10 MG TAB PO SCH (22:04)
[2018-11-15] MEDS: SERTRALINE HCL 25 MG TABLET PO SCH (22:04)
[2018-11-16] MEDS: IPRATROPIUM 0.5MG/ALBUTEROL 2.5MG INH SOL UD 3ML (DUONEB)(J7620) NEB SCH ×2 (00:51→07:49)
[2018-11-16 06:00] VITALS: BP 117/76
[2018-11-16 06:06] LABS: BASO % 0.2 % (0.0-1.0); HEMATOCRIT 33.5 % (36.0-47.0); HEMOGLOBIN 10.1 g/dl (12.0-15.5); LYMPH # 0.7 10^3/uL (1.5-5.0); LYMPH % 5.8 % (24.0-44.0); MEAN CORPUSCULAR HEMOGLOBIN 24.6 pg (27.0-33.0); MEAN CORPUSCULAR HGB CONC 30.1 g/dl (32.0-36.5); MEAN CORPUSCULAR VOLUME 81.7 fl (80.0-96.0); MONO # 0.5 10^3/uL (0.0-0.8); MONO % 4.6 % (0.0-5.0); NEUTROPHILS % 87.6 % (36.0-66.0); PLATELET COUNT, AUTOMATED 344 10^3/uL (150-450); WHITE BLOOD COUNT 11.4 10^3/uL (4.0-10.0)
[2018-11-16 06:28] LABS: ALBUMIN 2.6 GM/DL (3.2-5.2); BILIRUBIN,TOTAL 0.4 MG/DL (0.2-1.0); CALCIUM LEVEL 8.7 MG/DL (8.8-10.2); CREATININE FOR GFR 1.2 MG/DL (0.55-1.30); GLOMERULAR FILTRATION RATE 45.3 (>32); POTASSIUM SERUM 4.1 MEQ/L (3.5-5.1); TOTAL PROTEIN 5.8 GM/DL (6.4-8.2)
[2018-11-16] MEDS: cefTRIAXone SOD 1 GM in D5W MINI-BAG PLUS 50 ML IV SCH (07:51)
[2018-11-16] MEDS: PANTOPRAZOLE 40MG TAB (PROTONIX) PO SCH (09:26)
[2018-11-16] MEDS: AZITHROMYCIN INJ 500 MG, VIAL MATE ADAPTER 1 EACH in D5W 250 ML IV SCH (09:26)
[2018-11-16] MEDS: predniSONE 10 MG TAB PO SCH (09:27)
[2018-11-16] MEDS: MULTIVITAMINS/MINERALS THERAP 1 TAB PO SCH (09:27)
[2018-11-16] MEDS: POTASSIUM CHLORIDE 10 MEQ SR TABLET PO SCH (09:27)
[2018-11-16] MEDS: FUROSEMIDE 40 MG TAB PO SCH (09:27)
[2018-11-16] MEDS: CO-ENZYME Q10 50 MG CAP PO SCH (09:27)
[2018-11-16] MEDS: VITAMIN D 1,000 INTERNATIONAL UNITS TABLET PO SCH (09:27)
[2018-11-16] MEDS: APIXABAN 2.5 MG TAB (ELIQUIS) PO SCH (09:28)
[2018-11-16] MEDS: fentaNYL 12 MCG/HR PATCH TOP SCH (09:29)
[2018-11-16] MEDS: diltiaZEM **CD** 180 MG CAP PO SCH (09:32)
[2018-11-16 09:33] VITALS: BP 151/89
[2018-11-16] MEDS: LABETALOL 100 MG TAB PO SCH (09:33)
[2018-11-16] MEDS: MAGNESIUM OXIDE 400 MG TAB (MAG-OX) PO SCH (09:47)
[2018-11-16] MEDS ORDERED: CEFP100T PO (10:10)
--- NOTE | 2018-11-16 11:31 | DS.PDOC ---
Discharge Summary General Date of Admission Nov 11, 2018 at 23:20 Date of Discharge 11/16/18 Attending Physician: ZARIA PANDA MD Discharge Summary PROCEDURES PERFORMED DURING STAY: None. ADMITTING DIAGNOSES: 1. . Right lower lobe pneumonia, acute respiratory failure, COPD DISCHARGE DIAGNOSES: 1. Community acquired pneumonia, acute respiratory failure, COPD COMPLICATIONS/CHIEF COMPLAINT: Sepsis. HISTORY OF PRESENT ILLNESS: Ms. Osei is an 88 years old woman who presented [facility] ER last night with multiple complaints: SOb, dry cough, chest pain, lethargy, weakness, "sick" feeling and rectal bleeding for two days. She was noted to have a fever of 102.6; she was hypoxic, O2 sat 80s% in RA, and required 3L O2 by NC. BP was soft which dropped further after IV lasix. WBC 9.9, Hb 10, Lactate 2.3, Cr 1.3, troponin negative, BNP 2814, D-dime normal. PO2 [address] UA normal[address] chest and abd were unremarkable for any acute findings. Pt was transferred here for presumed sepsis of unclear source. She received Nebs, Solumedrol, Zosyn and Lasix in the ER. On arrival here, pt had good mental status and stable vitals, soft BP. She was noted to have bright red blood per rectum.. HOSPITAL COURSE: Acute hypoxic respiratory failure secondary to rhinovirus infection Oxygen support Supporting care Started on prednisone, which she responded very well Neb treatments and home medication was also continued and physical therapy evaluation was received There was questionable Questionable history of rectal bleed Patient had no evidence of rectal bleed while in the hospital A[place] was restarted as there was no evidence of bleeding in the hospital H&H today is 9.6 and 32.2 Follow with her PCP and GI as an outpatient Chest x-ray showed lower lobe infiltrate on admission Patient received Rocephin and Zithromax and responded very well to by mouth antibiotics. Her WBC count is essentially within normal limits Continue Rocephin and Zithromax Patient will be discharged home today on by mouth antibiotics. DISCHARGE MEDICATIONS: Please see below. ALLERGIES: Please see below. PHYSICAL EXAMINATION ON DISCHARGE: VITAL SIGNS: Please see below. GENERAL: Within normal limits HEENT: PERRLA. Extraocular muscles intact NECK: Supple, no JVD, no lymphadenopathy CARDIOVASCULAR EXAMINATION: . CVS S1, S2, regular RESPIRATORY EXAMINATION: Clear to A&P ABDOMINAL EXAMINATION: Benign EXTREMITIES: No clubbing, cyanosis, edema SKIN: Within normal limits NEUROLOGICAL EXAMINATION: . No focal motor sensory deficit PSYCHIATRIC EXAMINATION: Within normal limits LABORATORY DATA: Please see below. IMAGING: Chest x-ray showed right lower lobe pneumonia PROGNOSIS: Good ACTIVITY: As tolerated. DIET: As tolerated DISCHARGE PLAN: Discharge home. Follow with PCP and GI as an outpatient DISPOSITION: . Home DISCHARGE INSTRUCTIONS: 1. As per discharge instruction. ITEMS TO FOLLOWUP ON ON OUTPATIENT: 1. Follow with PCP and GI as an outpatient. DISCHARGE CONDITION: Stable. TIME SPENT ON DISCHARGE: 40 minutes. Vital Signs/I&Os Vital Signs Date Time Temp Pulse Resp B/P (MAP) Pulse Ox O2 Delivery O2 Flow Rate FiO2 11/16/18 09:59 18 11/16/18 09:33 95 151/89 11/16/18 06:00 97.9 98 11/13/18 09:00 1.0 11/12/18 14:16 Nasal Cannula I&O- Last 24 Hours up to 6 AM 11/16/18 06:00 Intake Total 1170 ml Output Total 1150 ml Balance 20 ml Laboratory Data Labs 24H Laboratory Tests 2 11/16/18 05:22: Immature Granulocyte % (Auto) 1.8, White Blood Count 11.4H, Red Blood Count 4.10, Hemoglobin 10.1L, Hematocrit 33.5L, Mean Corpuscular Volume 81.7, Mean Corpuscular Hemoglobin 24.6L, Mean Corpuscular Hemoglobin Concent 30.1L, Red Cell Distribution Width 20.0H, Platelet Count 344, Neutrophils (%) (Auto) 87.6H, Lymphocytes (%) (Auto) 5.8L, Monocytes (%) (Auto) 4.6, Eosinophils (%) (Auto) 0.0, Basophils (%) (Auto) 0.2, Neutrophils # (Auto) 10.0H, Lymphocytes # (Auto) 0.7L, Monocytes # (Auto) 0.5, Eosinophils # (Auto) 0.0, Basophils # (Auto) 0.0, Nucleated Red Blood Cells % (auto) 0.2H, Anion Gap 7L, Glomerular Filtration Rate 45.3, Blood Urea Nitrogen 46H, Creatinine 1.20, Sodium Level 141, Potassium Level 4.1, Chloride Level 104, Carbon Dioxide Level 30, Calcium Level 8.7L, Aspartate Amino Transf (AST/SGOT) 7, Alanine Aminotransferase (ALT/SGPT) 19, Alkaline Phosphatase 109, Total Bilirubin 0.4, Total Protein 5.8L, Albumin 2.6L, Albumin/Globulin Ratio 0.81L CBC/BMP Laboratory Tests 11/16/18 05:22 Red Blood Count 4.10, Mean Corpuscular Volume 81.7, Mean Corpuscular Hemoglobin 24.6 L, Mean Corpuscular Hemoglobin Concent 30.1 L, Red Cell Distribution Width 20.0 H, Neutrophils (%) (Auto) 87.6 H, Lymphocytes (%) (Auto) 5.8 L, Monocytes (%) (Auto) 4.6, Eosinophils (%) (Auto) 0.0, Basophils (%) (Auto) 0.2, Neutrophi ls # (Auto) 10.0 H, Lymphocytes # (Auto) 0.7 L, Monocytes # (Auto) 0.5, Eosinophils # (Auto) 0.0, Basophils # (Auto) 0.0, Calcium Level 8.7 L, Aspartate Amino Transf (AST/SGOT) 7, Alanine Aminotransferase (ALT/SGPT) 19, Alkaline Phosphatase 109, Total Bilirubin 0.4, Total Protein 5.8 L, Albumin 2.6 L Microbiology Microbiology 11/12/18 Respiratory Virus Panel (PCR) ([facility]) - Final, Complete Human Rhinovirus/Enterovirus Discharge Medications Scheduled Apixaban (Eliquis) 2.5 Mg Tablet, 2.5 MG PO BID, (Reported) Brimonidine Tartrate/Timolol (Combigan 0.2%-0.5% Eye Drops) 5 Ml Drops, 1 DROP OU BID, (Reported) Cefpodoxime Proxetil (Cefpodoxime Proxetil) 100 Mg Tablet, 100 MG PO BID Cholecalciferol (Vitamin D3) (Vitamin D3) 2,000 Unit Capsule, 2,000 UNIT PO DAILY, (Reported) Diltiazem Hcl (Cardizem Cd) 180 Mg Cap.er.24h, 180 MG PO DAILY, (Reported) Docusate Sodium (Colace) 100 Mg Capsule, 100 MG PO QHS, (Reported) Fentanyl (Fentanyl) 12 Mcg Patch.td72, 12 MCG TOP Q72H, (Reported) Furosemide (Furosemide) 40 Mg Tablet, 40 MG PO BID, (Reported) Ipratropium/Albuterol Sulfate (Iprat-Albut 0.5-3(2.5) mg/3 ml) 3 Ml Ampul.neb, 1 INHALATION NEB BID, (Reported) Labetalol HCl (Labetalol HCl) 100 Mg Tablet, 100 MG PO BID, (Reported) Magnesium Oxide (Magnesium) 400 Mg Capsule, 400 MG PO DAILY, (Reported) Multivitamins (Thera M Plus Tablet) 1 Each Tablet, 1 TAB PO DAILY, (Reported) Pantoprazole Sodium (Pantoprazole Sodium) 40 Mg Tablet.dr, 40 MG PO DAILY, (Reported) Potassium Chloride (Potassium Chloride) 10 Meq Tab.er.prt, 10 MEQ PO BID, (Reported) Pramipexole Di-HCl (Mirapex) 0.5 Mg Tablet, 0.5 MG PO QHS, (Reported) Sertraline HCl (Sertraline HCl) 25 Mg Tablet, 25 MG PO QHS, (Reported) Simvastatin (Zocor) 10 Mg Tablet, 10 MG PO QHS, (Reported) Ubidecarenone (Coenzyme Q10) 100 Mg Tablet, 100 MG PO DAILY, (Reported) Vit C/E/Zn/Coppr/Lutein/Zeaxan (Preservision Areds 2 Softgel) 1 Each Capsule, 1 EACH PO DAILY, (Reported) Vitamin E (Dl,Tocopheryl Acet) (Vitamin E) 400 Unit Capsule, 400 UNIT PO DAILY, (Reported) Scheduled PRN Acetaminophen (Acetaminophen) 500 Mg Tablet, 500 MG PO QID PRN for PAIN, (Reported) Bisacodyl (Bisacodyl) 10 Mg Supp.rect, 10 MG MO DAILY PRN for CONSTIPATION, (Reported) IF NO RESULTS FROM MILK OF MAGNESIA Magnesium Hydroxide (Milk of Magnesia) 400 Mg/5 Ml Oral.susp, 30 ML PO DAILY PRN for CONSTIPATION, (Reported) IF NO BM IN 48 HOURS Sodium Phosphate,[place]-Dibasic (Fleet Enema) 133 Ml Enema, 1 YANELI MO DAILY PRN for CONSTIPATION, (Reported) IF NO RESULTS FROM BISACODYL SUPPOSITORY Tramadol HCl (Tramadol HCl) 50 Mg Tablet, 50 MG PO QID PRN for PAIN, (Reported) Allergies Coded Allergies: meperidine (Verified Allergy, Intermediate, 06/16/18) strange feeling all over naproxen (Verified Allergy, Intermediate, itching, 06/16/18) ZARIA PANDA MD Nov 16, 2018 11:31
[2018-11-16] MEDS ORDERED: PRED10TA2 PO (11:38)
== END 2018-11-16 13:29 | DRG 189 ==
LOC: M ICU 23:20 → M MSPAV 11-12 17:03
PROVIDERS: ADMIT Internal Medicine; ATTEND Internal Medicine
DX: J96.01 Acute respiratory failure with hypoxia (principal); J18.9 Pneumonia, unspecified organism; K62.5 Hemorrhage of anus and rectum; B97.89 Other viral agents as the cause of diseases classified elsewhere; Z79.899 Other long term (current) drug therapy; Z88.8 Allergy status to other drugs, medicaments and biological substances